=== PATIENT | male | born 1955 | race Hispanic/Latino ===

== ENCOUNTER 2021-02-11 09:25 | Emergency (ER) | payer OTHER, SELFPAY ==
[2021-02-11 09:58] LABS: Basophils % 0.5 % (0-1.3); Hematocrit 43.6 % (39.6-49.0); Lymphocytes % 34.6 % (15.3-44.8); MPV 8.3 fL (7.6-11.3); RBC Red Blood Cell Count 4.51 M/uL (4.33-5.43)
[2021-02-11 10:05] LABS: Protime INR 0.95
[2021-02-11] MEDS ORDERED: NA CHLORIDE 0.9% 500 ML ONE (10:09)
[2021-02-11 10:22] LABS: BUN Blood Urea Nitrogen 16 mg/dL (7-18); Bicarbonate 27 mmol/L (21-32); Glucose Level 104 mg/dL (74-106); Potassium 3.8 mmol/L (3.5-5.1); Sodium Level 142 mmol/L (136-145); Troponin (Emerg Dept Use Only) < 0.02 ng/mL (0.0-0.045)
--- NOTE | 2021-02-11 11:01 | RAD REPORT ---
EXAM DESCRIPTION: CT - Head Brain Wo Cont - 02/11/2021 10:40 am CLINICAL HISTORY: SYNCOPE COMPARISON: Head angio dated 02/11/2021 TECHNIQUE: Axial 5 mm thick images of the head were obtained without IV contrast. All CT scans are performed using dose optimization technique as appropriate and may include automated exposure control or mA/KV adjustment according to patient size. FINDINGS: No intracranial hemorrhage, mass, edema or shift of mid-line structures. No acute infarcti on changes seen. No abnormal extra-axial fluid collections. Ventricles are normal. No significant atr ophy changes are identifiable and no significant chronic ischemic change. Arterial and physiologic ca lcifications are present. Mastoid air cells and visualized portions of the paranasal sinuses are clear. No acute bony findings. Oval lucent area in the right parietal bone is not believed to be an aggressi ve process. IMPRESSION: Negative non-contrast CT head examination for acute or significant intracranial finding. .
--- NOTE | 2021-02-11 11:02 | RAD REPORT ---
EXAM DESCRIPTION: CT - Head angio - 02/11/2021 10:42 am CLINICAL HISTORY: HTN;Syncope TECHNIQUE: During dynamic enhancement using nonionic IV contrast, axial 1 millimeter thick images of the head were obtained. Sagittal and axial reconstruction images were generated using MIP technique and reviewed. All CT scans are performed using dose optimization technique as appropriate and may include automated exposure control or mA/KV adjustment according to patient size. COMPARISON: CT head same date FINDINGS: No aneurysm or vascular malformation identified. Major venous sinuses are patent. No stenosis, named branch occlusion, vasculitis or other significant vascular finding identifiable. Patient has minimal calcifications of the cavernous internal carotid arteries with no measurable isaac nal narrowing. IMPRESSION: Negative CT angio head examination for acute or significant finding.
--- NOTE | 2021-02-11 11:05 | RAD REPORT ---
EXAM DESCRIPTION: CT - Neck Angio - 02/11/2021 10:42 am CLINICAL HISTORY: syncope TECHNIQUE: During dynamic enhancement using nonionic IV contrast, axial 2 mm thick images of the nec k were obtained. Sagittal and axial reconstruction images were generated using MIP technique and revi ewed. All CT scans are performed using dose optimization technique as appropriate and may include automated exposure control or mA/KV adjustment according to patient size. COMPARISON: CT head same date, CT angio head same date FINDINGS: No aneurysm or vascular malformation identified. No carotid or vertebral dissection. No aortic arch or great vessel origin abnormality seen. Vertebral artery origins unremarkable as well . No stenosis, vasculitis or other significant carotid artery finding. No focal abnormality of either vertebral artery. Basilar artery is normal. Patient has minimal vertebrobasilar tortuosity. A rounded low-density mass posterior margin of the left thyroid lobe may be a large partially exophyt ic thyroid nodule. No other evidence for mass or abnormal lymphadenopathy in the neck soft tissues. IMPRESSION: Negative CT angio neck examination. Suspected large posterior left thyroid nodule. Follow-up outpatient thyroid sonography can be perform ed to monitor for further evaluate this finding.
--- NOTE | 2021-02-11 11:28 | ER ---
Nurse's Notes [facility] Name: Mikael Fry Age: 65 yrs Sex: Male : 1955 Arrival Date: 02/11/2021 Time: 09:28 Bed 19 Private MD: Diagnosis: Syncope;Hypertension;Concussion without loss of consciousness;Dizziness and giddiness Presentation: 02/11 09:37 Chief complaint: Patient states: having a syncopal episode on Monday, hitting the back sv of his head on the concrete, +LOC. Went home and Wed woke up with dizziness and drowsiness. Today still has dizziness when he gets up and moves fast and feels "out of it.". Coronavirus screen: Client denies travel out of the [place] in the last 14 days. At this time, the client does not indicate any symptoms associated with coronavirus-19. Ebola Screen: No symptoms or risks identified at this time. Risk Assessment: Do you want to hurt yourself or someone else? Patient reports no desire to harm self or others. Onset of symptoms was February 09, 2021. 09:37 Method Of Arrival: Wheelchair sv 09:37 Acuity: LISE 2 sv 10:14 Initial Sepsis Screen: Does the patient meet any 2 criteria? No. Patient's initial jd3 sepsis screen is negative. Does the patient have a suspected source of infection? No. Patient's initial sepsis screen is negative. Historical: - Allergies: 09:39 No Known Allergies; sv - PMHx: 09:39 None; sv - PSHx: 09:39 None; sv - Immunization history:: Client reports having NOT received the Covid vaccine. - Social history:: Smoking status: Patient reports the use of cigarette tobacco products, denies chronic smoking, but will smoke occasionally, Patient uses alcohol, on a daily basis. admits to "couple of beers" a day. Patient/guardian denies using street drugs, IV drugs. - Family history:: not pertinent. - Hospitalizations: : No recent hospitalization is reported. Screenin:39 VAN Screening: Arm Drift: Patient shows no arm weakness. Patient is VAN negative. sv 10:14 Abuse screen: Denies threats or abuse. Nutritional screening: No deficits noted. jd3 Tuberculosis screening: No symptoms or risk factors identified. Fall Risk Ambulatory Aid- None/Bed Rest/Nurse Assist (0 pts). Gait- Normal/Bed Rest/Wheelchair (0 pts) Mental Status- Oriented to own ability (0 pts). Total Mcgee Fall Scale indicates No Risk (0-24 pts). Assessment: 09:37 Reassessment: Dr Schneider at the bedside. sv 10:12 General: Appears in no apparent distress. comfortable, Behavior is calm, cooperative, jd3 appropriate for age. Pain: Denies pain. Neuro: Level of Consciousness is awake, alert, obeys commands, Oriented to person, place, time, situation, Installation Specialist are equal bilaterally Moves all extremities. Full function Speech is normal, Pupils are PERRLA, Reports dizziness, Denies weakness blurred vision numbness. Cardiovascular: Denies chest pain, Capillary refill < 3 seconds Patient's skin is warm and dry. Rhythm is regular. Respiratory: Airway is patent Respiratory effort is even, unlabored, Respiratory pattern is regular, symmetrical, Denies cough, shortness of breath. GI: No signs and/or symptoms were reported involving the gastrointestinal system. : No signs and/or symptoms were reported regarding the genitourinary system. EENT: No signs and/or symptoms were reported regarding the EENT system. Derm: Skin is intact, Skin is dry, Skin is normal, Skin temperature is warm. Musculoskeletal: Circulation, motion, and sensation intact. Range of motion: intact in all extremities. 11:21 Reassessment: Patient appears in no apparent distress at this time. No changes from jd3 previously documented assessment. Patient and/or family updated on plan of care and expected duration. Pain level reassessed. Patient is alert, oriented x 3, equal unlabored respirations, skin warm/dry/pink. 11:50 Reassessment: Patient appears in no apparent distress at this time. Patient and/or jd3 family updated on plan of care and expected duration. Pain level reassessed. Patient is alert, oriented x 3, equal unlabored respirations, skin warm/dry/pink. Neuro: Level of Consciousness is awake, alert, obeys commands, Oriented to person, place, time, situation, Installation Specialist are equal bilaterally Moves all extremities. Full function Gait is steady, Speech is normal, Facial symmetry appears normal, Pupils are PERRLA. Vital Signs: 09:37 BP 236 / 106; Pulse 86; Resp 18; Temp 99; sv 10:13 BP 177 / 95; Pulse 55; Resp 17 S; Pulse Ox 100% on R/A; jd3 11:21 BP 183 / 108; Pulse 72; Resp 18 S; Pulse Ox 99% on R/A; jd3 ED Course: 09:28 Patient arrived in ED. wm 09:31 Rg Schneider MD is Attending Physician. rn 09:38 Triage completed. sv 09:39 Arm band placed on. sv 09:54 Bulmaro Sumner RN is Primary Nurse. jd3 10:14 Patient has correct armband on for positive identification. Bed in low position. Call jd3 light in reach. Side rails up X 1. alarm security or surveillance monitor on. Pulse ox on. NIBP on. 10:30 Inserted saline lock: 20 gauge in right antecubital area, using aseptic technique. jd3 Blood collected. 10:42 CT Head Brain wo Cont In Process Unspecified. EDMS 10:43 CT Head Angio In Process Unspecified. EDMS 10:43 CT Neck Angio In Process Unspecified. EDMS 11:38 IV discontinued, intact, bleeding controlled, No redness/swelling at site. Pressure jd3 dressing applied. 11:51 No provider procedures requiring assistance completed. jd3 Administered Medications: 09:54 Drug: NS 0.9% 500 ml Route: IV; Rate: bolus; Site: right antecubital; jd3 10:50 Follow up: Response: No adverse reaction; IV Status: Completed infusion; IV Intake: jd3 500ml 11:38 Drug: Lisinopril 10 mg Route: PO; jd3 11:53 Follow up: Response: Medication administered at discharge. jd3 Intake: 10:50 IV: 500ml; Total: 500ml. jd3 Outcome: 11:27 Discharge ordered by . rn 11:52 Discharged to home ambulatory. jd3 11:52 Condition: stable 11:52 Discharge instructions given to patient, Instructed on discharge instructions, follow up and referral plans. medication usage, Demonstrated understanding of instructions, follow-up care, medications, Prescriptions given X 1. 11:53 Patient left the ED. jd3 Signatures: Dispatcher [employer] EDMS Kelly Land RN RN Rg Schneider MD MD rn Davies, Jonathon, RN RN jd3 Marsh, Wendy Corrections: (The following items were deleted from the chart) 11:24 11:21 Pulse 72bpm; Resp 18bpm; Spontaneous; Pulse Ox 99% RA; jd3 jd3
--- NOTE | 2021-02-11 11:28 | EDPHYS ---
Physician Documentation [facility] Name: Mikael Fry Age: 65 yrs Sex: Male : 1955 Arrival Date: 02/11/2021 Time: 09:28 Bed 19 Private MD: ED Physician Rg Schneider HPI: 02/11 09:38 This 65 yrs old Male presents to ER via Unassigned with complaints of syncope, rn head injury, dizziness. 09:38 The patient has experienced syncope. Onset: The symptoms/episode began/occurred 2 rn day(s) ago. Duration: This was a single episode. Context: occurred at work, occurred while the patient was standing, Just prior to the episode the patient experienced no apparent symptoms. Associated injury: Head/face:. Associated signs and symptoms: Pertinent positives: dizziness, Pertinent negatives: abdominal pain, agitation, ataxia, chest pain, numbness, palpitations, seizure, shortness of breath, vomiting, weakness. Current symptoms: Currently, the patient is not experiencing any symptoms. The patient has not experienced similar symptoms in the past. The patient has not recently seen a physician. Reports syncope at work 2 days ago, was standing/walking, no symptoms prior to episode, is daily drinker, doesn't take medication. Reports hit back of head on concrete and since then has felt dizzy when standing, not ataxic, no other injuries. Currently denies any pain, especially in head or chest/abdomen. No vomiting/diarrhea. Works at plant. . Historical: - Allergies: 09:39 No Known Allergies; sv - PMHx: 09:39 None; sv - PSHx: 09:39 None; sv - Immunization history:: Client reports having NOT received the Covid vaccine. - Social history:: Smoking status: Patient reports the use of cigarette tobacco products, denies chronic smoking, but will smoke occasionally, Patient uses alcohol, on a daily basis. admits to "couple of beers" a day. Patient/guardian denies using street drugs, IV drugs. - Family history:: not pertinent. - Hospitalizations: : No recent hospitalization is reported. ROS: 09:38 Constitutional: Negative for fever, chills, and weight loss, Eyes: Negative for injury, rn pain, redness, and discharge, Neck: Negative for injury, pain, and swelling, Cardiovascular: Negative for chest pain, palpitations, and edema, Respiratory: Negative for shortness of breath, cough, wheezing, and pleuritic chest pain, Abdomen/GI: Negative for abdominal pain, nausea, vomiting, diarrhea, and constipation, Back: Negative for injury and pain, MS/Extremity: Negative for injury and deformity, Skin: Negative for injury, rash, and discoloration, Neuro: Negative for headache, weakness, numbness, tingling, and seizure. 09:38 All other systems are negative. Exam: 09:38 Constitutional: This is a well developed, well nourished patient who is awake, alert, rn and in no acute distress. Head/Face: Normocephalic, atraumatic. Eyes: Periorbital areas with no swelling, redness, or edema. ENT: MMM Neck: No Meningismus. Cardiovascular: Regular rate and rhythm. No pulse deficits. Respiratory: No increased work of breathing, no retractions or nasal flaring. Skin: Warm, dry MS/ Extremity: Pulses equal, no cyanosis. Neuro: Awake and alert, GCS 15, oriented to person, place, time, and situation. Cranial nerves II-XII grossly intact. Motor strength 5/5 in all extremities. Sensory grossly intact. Cerebellar exam normal. Normal gait. 10:11 ECG was reviewed by the Attending Physician. rn Vital Signs: 09:37 BP 236 / 106; Pulse 86; Resp 18; Temp 99; sv 10:13 BP 177 / 95; Pulse 55; Resp 17 S; Pulse Ox 100% on R/A; jd3 11:21 BP 183 / 108; Pulse 72; Resp 18 S; Pulse Ox 99% on R/A; jd3 MDM: 09:31 Patient medically screened. rn 11:24 Differential Diagnosis: cardiac arrhythmia, idiopathic syncope, vasovagal episode, rn concussion, dehydration, ETOH related. Data reviewed: vital signs, nurses notes, lab test result(s), EKG, radiologic studies, CT scan, and as a result, I will discharge patient. Counseling: I had a detailed discussion with the patient and/or guardian regarding: the historical points, exam findings, and any diagnostic results supporting the discharge/admit diagnosis, lab results, radiology results, the need for outpatient follow up, to return to the emergency department if symptoms worsen or persist or if there are any questions or concerns that arise at home. Response to treatment: the patient's symptoms have markedly improved after treatment, the patient is now symptom free, and as a result, I will discharge patient. ED course: Asymptomatic, BP up and down, doesn't have pcp, will start on low dose BP medication and given information for PCPs in area and urged to f/u. CT angios neg, ecg without ischemia. . 02/11 09:37 Order name: Basic Metabolic Panel; Complete Time: 10: rn 02/11 09:37 Order name: CBC with Diff; Complete Time: :02/11 09:37 Order name: Protime (+inr); Complete Time: :02/11 09:37 Order name: Ptt, Activated; Complete Time: :02/11 09:37 Order name: Troponin (emerg Dept Use Only); Complete Time: :02/11 09:37 Order name: CT Head Brain wo Cont; Complete Time: 11: rn 02/11 09:37 Order name: EKG; Complete Time: 09:38 rn 02/11 09:37 Order name: Cardiac monitoring; Complete Time: : rn 02/11 09:37 Order name: EKG - Nurse/Tech; Complete Time: 10: rn 02/11 09:37 Order name: IV Saline Lock; Complete Time: : rn 02/11 09:37 Order name: CT Head Angio; Complete Time: 11: rn 02/11 09:37 Order name: CT Neck Angio; Complete Time: 11: rn 02/11 09:37 Order name: Labs collected and sent; Complete Time: : rn 02/11 09:37 Order name: O2 Per Protocol; Complete Time: :02/11 09:37 Order name: O2 Sat Monitoring; Complete Time: 09:55 rn EC:11 Rate is 58 beats/min. Rhythm is regular. QRS [place] is Normal. ND interval is normal. QRS rn interval is normal. QT interval is normal. No Q waves. T waves are Normal. No ST changes noted. Clinical impression: Sinus bradycardia. Interpreted by me. Reviewed by me. Administered Medications: 09:54 Drug: NS 0.9% 500 ml Route: IV; Rate: bolus; Site: right antecubital; jd3 10:50 Follow up: Response: No adverse reaction; IV Status: Completed infusion; IV Intake: jd3 500ml 11:38 Drug: Lisinopril 10 mg Route: PO; jd3 11:53 Follow up: Response: Medication administered at discharge. jd3 Disposition Summary: 02/11/21 11:27 Discharge Ordered Location: Home rn Problem: new rn Symptoms: have improved rn Condition: Stable rn Diagnosis - Syncope rn - Hypertension rn - Concussion without loss of consciousness rn - Dizziness and giddiness rn Followup: rn - With: Private Physician - When: As needed - Reason: Recheck today's complaints, Re-evaluation by your physician Discharge Instructions: - Concussion, Adult rn - Dizziness rn - Discharge Summary Sheet jd3 - Hypertension, Adult rn Forms: - Work release form jd3 - Medication Reconciliation Form rn - Thank You Letter rn - Antibiotic rn nursery - Prescription Opioid Use rn Prescriptions: - Lisinopril 10 mg Oral Tablet - take 1 tablet by ORAL route once daily; 60 tablet; Refills: 0, Product rn Selection Permitted Signatures: Dispatcher [employer] Kelly Atkins RN RN Rg Shell MD MD rn Davies, Jonathon, RN RN jd3
[2021-02-11] MEDS ORDERED: lisinopriL 10 MG TAB ONE (11:55)
[2021-02-11 12:01] VITALS: TEMP 99
[2021-02-11 12:04] VITALS: BP 183/108; O2SAT 99
--- NOTE | 2021-02-12 07:46 | EKG ---
Test Date: 2021-02-11 Test Time: 10:00:39 Aviation Project Manager: DEMETRIO MEASUREMENT RESULTS: Intervals: Rate: 58 WI: 156 QRSD: 96 QT: 426 QTc: 418 [place]: P: 74 WI: 156 QRS: 77 T: 70 INTERPRETIVE STATEMENTS: Sinus bradycardia Otherwise normal ECG No previous ECG available for comparison Electronically Signed On 02-12-21 07:42:55 CDT by Richard Montanez
== END 2021-02-11 11:53 | disposition home or self-care (01) ==
LOC: ER 09:25
DX: S06.0X0A Concussion without loss of consciousness, initial encounter (principal); R55 Syncope and collapse; I10 Essential (primary) hypertension; W18.39XA Other fall on same level, initial encounter; Y92.89 Other specified places as the place of occurrence of the external cause; Y99.8 Other external cause status
CPT/HCPCS: 36415; 70450; 70496; 70498; 80048; 84484; 85025; 85610; 85730; 93005; 96360; 99284; J7040; Q9967

== ENCOUNTER → 2023-10-11 | Emergency (ER) | payer OTHER ==
[~2023-10-11] MED LIST: DIAZEPAM 5 MG TABLET ONE; HYDROCODONE/APAP 5/325 MG TAB ONE
--- NOTE | 2023-10-11 11:53 | EDPHYS ---
Physician Documentation [facility] Name: Mikael Fry Age: 68 yrs Sex: Male : 1955 Arrival Date: 10/11/2023 Time: 09:54 Bed DX3 Private MD: ED Physician Michael Brown HPI: 10/10 11:53 This 68 yrs old Male presents to ER via Ambulatory with complaints of Low Back ms3 Pain. 11:53 68-year-old male with past medical history of hypertension and low back pain presents ms3 to the emergency department for right low back pain that has been ongoing for 3 months. Patient states he had an MRI performed 3 months ago that showed inflammation of his right hip and he is concerned it moved into his back. Patient states his discomfort is an 8/10. Patient denies any alleviating or inciting factors. Historical: - Allergies: 10:09 No Known Allergies; bp - Home Meds: 10:09 Unable to obtain [Active]; bp - PMHx: 10:09 Hypertensive disorder; bp - Immunization history:: Adult Immunizations up to date. - Social history:: Smoking status: unknown. ROS: 11:53 Constitutional: Negative for fever, and chills. Neck: Negative for injury, pain, and ms3 swelling, Cardiovascular: Negative for chest pain, and palpitations. Respiratory: Negative for shortness of breath, cough, wheezing, and pleuritic chest pain, Abdomen/GI: Negative for abdominal pain, nausea, vomiting, diarrhea, and constipation, 11:53 Back: Positive for Low back pain, 11:53 MS/extremity: Exam: 11:53 Constitutional: This is a well developed, well nourished patient who is awake, alert, ms3 and in no acute distress. Head/Face: Normocephalic, atraumatic. Chest/axilla: Normal chest wall appearance and motion. Nontender with no deformity. Cardiovascular: Regular rate and rhythm with a normal S1 and S2. No gallops, murmurs, or rubs. Normal PMI, no JVD. No pulse deficits. Respiratory: Lungs have equal breath sounds bilaterally, clear to auscultation and percussion. No rales, rhonchi or wheezes noted. No increased work of breathing, no retractions or nasal flaring. Abdomen/GI: Soft, non-tender, with normal bowel sounds. No distension or tympany. No guarding or rebound. No evidence of tenderness throughout. 11:53 Back: pain, that is moderate, of the right low back, muscle spasm, is appreciated in the right low back, Vital Signs: 10:08 BP 109 / 67; Pulse 82; Resp 16; Temp 98; Pulse Ox 98% ; Weight 63.5 kg; Height 5 ft. 6 bp in. ; 12:07 BP 115 / 70; Pulse 77; Resp 18; Temp 98.4; Pulse Ox 100% ; Pain 5/10; kb3 10:08 Body Mass Index 22.60 (63.50 kg, 167.64 cm) bp 12:07 Pain Scale: Adult kb3 MDM: 10:20 Patient medically screened. ms3 11:53 Differential diagnosis: arthritis, strain, Herniated disc. Data reviewed: vital signs, ms3 nurses notes, and as a result, I will discharge patient. I considered the following discharge prescriptions or medication management in the emergency department Medications were administered in the Emergency Department. See MAR. Care significantly affected by the following chronic conditions: Hypertension. Counseling: I had a detailed discussion with the patient and/or guardian regarding the historical points, exam findings, and any diagnostic results supporting the discharge/admit diagnosis, the need for outpatient follow up, to return to the emergency department if symptoms worsen or persist or if there are any questions or concerns that arise at home. ED course: On reevaluation patient states his symptoms are improved after Valium and [place]. Patient to follow-up with primary care physician in 2 to 3 days. Patient understands agrees with plan. All questions were answered. Return precautions discussed include worsening symptoms, or any other concerns. On reevaluation patient is alert and oriented x 4, no apparent distress, nontoxic-appearing, ambulatory in the emergency room, speaking full sentences. Patient denies bowel or bladder incontinence, saddle anesthesia, or lower extremity weakness. Administered Medications: 11:28 Drug: HYDROcodone-acetaminophen PO 5 mg-325 mg 1 tabs PO once Route: PO; kb3 12:04 Follow up: Response: Pain is decreased kb3 11:28 Drug: Diazepam PO 5 mg PO once Route: PO; kb3 12:04 Follow up: Response: Pain is decreased kb3 Disposition Summary: 03/06/24 11:53 Discharge Ordered Notes: Location: Home ms3 Condition: Stable ms3 Diagnosis - Low back pain ms3 - Sciatica, unspecified side ms3 Followup: ms3 - With: Hussain Montoya DO - When: 2 - 3 days - Reason: Recheck today's complaints Discharge Instructions: - Discharge Summary Sheet ms3 - Acute Back Pain, Adult ms3 Forms: - Medication Reconciliation Form ms3 - Thank You Letter ms3 - Antibiotic Education ms3 - Prescription Opioid Use ms3 - Patient Portal Instructions ms3 - Leadership Thank You Letter ms3 - Work release form kb3 Prescriptions: - Ibuprofen 600 mg Oral Tablet - take 1 tablet ORAL route every 6 hours As needed take with food; 30 tablet; ms3 Refills: 0, Product Selection Permitted - Cyclobenzaprine 10 mg Oral Tablet - take 1 tablet ORAL route every 8 hours As needed; 30 tablet; Refills: 0, ms3 Product Selection Permitted Signatures: Emile Garsia RN RN Michael Soto DO DO ms3 Codie Terry, RN RN kb3
--- NOTE | 2023-10-11 11:53 | ER ---
Nurse's Notes [facility] Name: Mikael Fry Age: 68 yrs Sex: Male : 1955 Arrival Date: 10/11/2023 Time: 09:54 Bed DX3 Private MD: Diagnosis: Low back pain;Sciatica, unspecified side Presentation: 10/10 10:08 Chief complaint: Patient states: FALL 1 YR AGO, 6 MONTH RIGHT HIP AND LUMBAR PAIN. bp Coronavirus screen: At this time, the client does not indicate any symptoms associated with coronavirus-19. Ebola Screen: No symptoms or risks identified at this time. Initial Sepsis Screen: Does the patient meet any 2 criteria? No. Patient's initial sepsis screen is negative. Does the patient have a suspected source of infection? No. Patient's initial sepsis screen is negative. Risk Assessment: Do you want to hurt yourself or someone else? Patient reports no desire to harm self or others. Onset of symptoms is unknown. 10:08 Method Of Arrival: Ambulatory bp 10:08 Acuity: LISE 4 bp Triage Assessment: 10:09 General: Appears in no apparent distress. uncomfortable, Behavior is calm, cooperative, bp appropriate for age. Pain: Complains of pain in back. Historical: - Allergies: 10:09 No Known Allergies; bp - Home Meds: 10: Unable to obtain [Active]; bp - PMHx: 10:09 Hypertensive disorder; bp - Immunization history:: Adult Immunizations up to date. - Social history:: Smoking status: unknown. Screenin:00 [facility] ED Fall Risk Assessment (Adult) History of falling in the last 3 months, kb3 including since admission No falls in past 3 months (0 pts) Confusion or Disorientation Yes (5 pts) Intoxicated or Sedated No (0 pts) Impaired Gait No (0 pts) Mobility Assist Device Used No (0 pt) Altered Elimination No (0 pt) Score/Fall Risk Level 0 - 2 = Low Risk Oriented to surroundings. Abuse screen: Denies threats or abuse. Denies injuries from another. Nutritional screening: No deficits noted. Tuberculosis screening: No symptoms or risk factors identified. Assessment: 11:00 General: Appears in no apparent distress. uncomfortable, Behavior is calm, cooperative. kb3 Pain: Complains of pain in low back area Pain currently is 10 out of 10 on a pain scale. Quality of pain is described as aching, sharp, throbbing. Neuro: No deficits noted. Musculoskeletal: Reports pain in low back area. Vital Signs: 10:08 BP 109 / 67; Pulse 82; Resp 16; Temp 98; Pulse Ox 98% ; Weight 63.5 kg; Height 5 ft. 6 bp in. ; 12:07 BP 115 / 70; Pulse 77; Resp 18; Temp 98.4; Pulse Ox 100% ; Pain 5/10; kb3 10:08 Body Mass Index 22.60 (63.50 kg, 167.64 cm) bp 12:07 Pain Scale: Adult kb3 ED Course: 09:57 Patient arrived in ED. mg5 10:09 Triage completed. bp 10:09 Arm band placed on. bp 10:11 Michael Brown DO is Attending Physician. ms3 11:52 Hussain Montoya DO is Referral Physician. ms3 12:00 Patient has correct armband on for positive identification. Provided Education on: kb3 Ice/heat alternating to affected area, medications as needed. 12:00 No provider procedures requiring assistance completed. Patient did not have IV access kb3 during this emergency room visit. Administered Medications: 11:28 Drug: HYDROcodone-acetaminophen PO 5 mg-325 mg 1 tabs PO once Route: PO; kb3 12:04 Follow up: Response: Pain is decreased kb3 11:28 Drug: Diazepam PO 5 mg PO once Route: PO; kb3 12:04 Follow up: Response: Pain is decreased kb3 Medication: 11:00 VIS not applicable for this client. kb3 Outcome: 11:53 Discharge ordered by . ms3 12:07 Discharged to home ambulatory, kb3 12:07 Condition: stable 12:07 Discharge instructions given to patient, Instructed on discharge instructions, follow up and referral plans. medication usage, Demonstrated understanding of instructions, follow-up care, medications, Prescriptions given X 2, 12:07 Patient left the ED. kb3 Signatures: Emile Garsia, RN RN Michael Soto DO DO ms3 Codie Terry, BELÉN RN [email or web address] Juli Russell mg5
[2023-10-11 12:18] VITALS: BP 115/70; TEMP 98.4; O2SAT 100
== END ==
LOC: ER 09:54
DX: M54.31 Sciatica, right side (principal)
CPT/HCPCS: 99283

== ENCOUNTER 2023-11-20 13:55 | Inpatient (IN) | payer OTHER ==
[2023-11-20] MEDS ORDERED: ONDANSETRON 4 MG/2 ML VIAL ONE (15:32)
[2023-11-20] MEDS ORDERED: NA CHLORIDE 0.9% 1,000 ML ONE ×3 (15:32→21:13)
[2023-11-20 15:36] LABS: Absolute Lymphocytes (CBC) 1.3 K/uL (0.7-4.9); Absolute Neutrophil 11.3 K/uL (1.8-8.0); Basophils % 0.2 % (0-1.3); Eosinophils % 0.3 % (0-4.4); Hematocrit 21.5 % (39.6-49.0); Hemoglobin 6.8 g/dL (13.6-17.9); Lymphocytes % 9.6 % (15.3-44.8); MCHC 31.4 g/dL (32.0-36.0); MCV 76.4 fL (80-100); MPV 6.8 fL (7.6-11.3); Monocytes % 7.5 % (3.3-12.3); Neutrophils % 82.4 % (41.7-73.7); Platelets 789 thou/uL (152-406); RBC Red Blood Cell Count 2.82 M/uL (4.33-5.43); Red Cell Distribution Width 23.1 % (12.1-15.2)
[2023-11-20 15:44] LABS: PT Prothrombin Time 13.3 SECONDS (9.5-12.5); PTT, Activated Partial Thromb 26.8 SECONDS (24.3-36.9); Protime INR 1.22
[2023-11-20 15:55] LABS: Albumin/Globulin Ratio 0.3 (1.1-1.8); Anion Gap 10.6 mEq/L (5.0-15.0); Bilirubin Total 0.3 mg/dL (0.2-1.0)
[2023-11-20 15:57] LABS: Potassium 3.6 mEq/L (3.5-5.1)
--- NOTE | 2023-11-20 18:14 | RAD REPORT ---
EXAM DESCRIPTION: CT - Chest Abd Pelvis Wo Con - 11/20/2023 4:49 pm CLINICAL HISTORY: abd pain, anemia, nvd COMPARISON: CT ABD PELVIS W CONTRAST dated 03/26/2013; Head Brain Wo Cont dated 02/11/2021 TECHNIQUE: Thin axial CT images of the chest, abdomen, and pelvis, performed without IV contrast. Mu ltiplanar reformats were generated and reviewed. All CT scans are performed using dose optimization technique as appropriate and may include automated exposure control or mA/KV adjustment according to patient size. FINDINGS: Numerous pulmonary nodules, largest in the right middle lobe medially abutting the minor f issure measuring 2.0 x 1.7 cm. Another right middle lobe nodule more peripherally measuring 1.1 cm al so abutting the minor fissure on axial image 36. Medial left basilar nodule measuring 1.7 cm on axial image 54. Central left upper lobe 1 cm nodule on axial image 38. Numerous other smaller nodules appr eciated bilaterally.No pleural or pericardial effusion.No intrathoracic adenopathy. The liver demonstrates bilobed hypoattenuating masses near the dome the largest component is posterio rly measuring 9.3 x 7.6 cm. The spleen, pancreas, and adrenal glands are within normal limits. Right moderate hydronephrosis and hydroureter. Mild prominence of the left renal pelvis. Segment of nodular wall thickening along the lower rectum and upper anal canal, with some soft tissue thickening along the mesial rectal fat. No bowel obstruction, free air, free fluid or abscess. Pro minent retroperitoneal and left pelvic sidewall lymph nodes, largest measuring 11 mm and 1.4 cm in sh ort axis respectively. No worrisome osseous finding. IMPRESSION: Segment of nodular wall thickening along the lower rectum and anal canal, raises concern for malignancy. Large bilobed hypoattenuating mass near the right hepatic dome, largest component measures 9.3 cm, ma y represent a primary or metastatic mass. Numerous pulmonary nodules concerning for pulmonary metastases. Mildly prominent retroperitoneal and left pelvic sidewall lymph nodes, concerning for metastatic mariaa opathy. Moderate right hydronephrosis and hydroureter, without evidence of an obstructing calculus. Findings may relate to retrograde ureteral reflux or a distal stricture.
[2023-11-20] MEDS ORDERED: NA CHLORIDE 0.9% 500 ML ONE (18:39)
[2023-11-20 18:57] LABS: Anisocytosis 1+; Blood Morphology Comment NOTED (NOT SEEN); Platelet Estimate INCR; Poikilocytosis 2+; White Blood Cell Scan OK (OK)
[2023-11-20 19:21] LABS: Specific Gravity 1.018 (1.005-1.030); Sqamous Epithelial None Seen /HPF (None Seen); Urine Bacteria <20 /HPF (<20); Urine Bilirubin NEGATIVE (Negative); Urine Blood 1+ (Negative); Urine Clarity Extremely Turbid (Clear); Urine Color Yellow (Yellow); Urine Crystals Unidentified Few /HPF (None Seen); Urine Culture Reflex Order REFLEXED; Urine Glucose NEGATIVE (Negative); Urine Ketones NEGATIVE (Negative); Urine Microscopic Reflex YN ORDER UMIC; Urine Nitrite NEGATIVE (Negative); Urine Protein 1+ (Negative); Urine Urobilinogen 1+ (Normal); Urine WBC >50 /HPF (<5)
[2023-11-20] MEDS ORDERED: ONDANSETRON 4 MG/2 ML VIAL IV PRN (19:59)
[2023-11-20] MEDS ORDERED: ACETAMINOPHEN 500 MG TAB PO PRN (19:59)
--- NOTE | 2023-11-20 19:59 | ER ---
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 Denies nausea nj1 and vomiting. Complains of diarrhea. Coronavirus screen: Vaccine status: Patient reports being unvaccinated. Ebola Screen: Patient denies travel to an Ebola-affected area in the 21 days before illness onset. Initial Sepsis Screen: Does the patient meet any 2 criteria? HR > 90 bpm. No. Patient's initial sepsis screen is negative. Does the patient have a suspected source of infection? No. Patient's initial sepsis screen is negative. Risk Assessment: Do you want to hurt yourself or someone else? Patient reports no desire to harm self or others. Onset of symptoms was September 2023. 14:14 Method Of Arrival: Ambulatory banner 14:14 Acuity: LISE 3 nj1 Triage Assessment: 14:21 General: Appears in no apparent distress. uncomfortable, Behavior is calm, cooperative, nj1 appropriate for age. GI: Reports upper abdominal pain, diarrhea, Patient currently denies nausea. 14:22 Pain: Complains of pain in abdomen Pain currently is 8 out of 10 on a pain scale. nj1 Historical: - Allergies: 14:21 No Known Allergies; nj1 - PMHx: 14:21 Hypertensive disorder; nj1 - Immunization history:: Client reports having NOT received the Covid vaccine. - Infectious Disease History:: Denies. - Social history:: Smoking status: Patient reports the use of cigarette tobacco products, smokes one-half pack cigarettes per day. Screenin:58 [facility] ED Fall Risk Assessment (Adult) History of falling in the last 3 months, db including since admission No falls in past 3 months (0 pts) Confusion or Disorientation No (0 pts) Intoxicated or Sedated No (0 pts) Impaired Gait No (0 pts) Mobility Assist Device Used No (0 pt) Altered Elimination No (0 pt) Score/Fall Risk Level 0 - 2 = Low Risk Oriented to surroundings, Maintained a safe environment. Abuse screen: Denies threats or abuse. Denies injuries from another. Nutritional screening: No deficits noted. Tuberculosis screening: No symptoms or risk factors identified. Assessment: 15:15 Reassessment: Patient appears in no apparent distress at this time. Patient and/or db family updated on plan of care and expected duration. Pain level reassessed. Patient is alert, oriented x 3, equal unlabored respirations, skin warm/dry/pink. General: Appears in no apparent distress. uncomfortable, Behavior is calm, cooperative. Pain: Complains of pain in back and abdomen. Neuro: Level of Consciousness is awake, alert, obeys commands, Oriented to person, place, time, situation, Speech is normal, Facial symmetry appears normal. Cardiovascular: Reports None Denies chest pain. Respiratory: Airway is patent Respiratory effort is even, unlabored, Respiratory pattern is regular, symmetrical. GI: Abdomen is flat, non-distended, Bowel sounds present X 4 quads. Abd is soft Reports lower abdominal pain. :. EENT: No deficits noted. No signs and/or symptoms were reported regarding the EENT system. Musculoskeletal: Reports pain in back. 15:20 Reassessment: REQUESTED URINE FROM PT. db 15:55 Reassessment: NOTIFIED PROVIDER KEREN PATIENT LACTATE 3.4. db 16:00 Reassessment: Patient appears in no apparent distress at this time. Patient and/or db family updated on plan of care and expected duration. Pain level reassessed. Patient is alert, oriented x 3, equal unlabored respirations, skin warm/dry/pink. 16:56 Reassessment: REMINDED PATIENT OF NEED FOR URINE STATES IS UNABLE TO URINATE AT THIS db TIME. 18:00 Reassessment: Patient appears in no apparent distress at this time. Patient and/or db family updated on plan of care and expected duration. Pain level reassessed. Patient is alert, oriented x 3, equal unlabored respirations, skin warm/dry/pink. General: Appears in no apparent distress. comfortable, Behavior is calm, cooperative. 18:05 Reassessment: CALLED BLOOD BANK FOR UPDATE IN BLOOD PRODUCT STATUS. db 18:26 Reassessment: REQUEST FOR BLOOD SENT TO LAB. db 18:28 Reassessment: CONSENT FOR BLOOD SIGNED AND ON THE CHART. db 18:36 Reassessment: PT AMBULATORY TO RESTROOM. OFFERED PT GOWN REFUSED. OFFERED PATIENT PAPER db SCRUBS PATIENT REFUSED. PT GIVEN WIPES. PT WANTS A SHOWER. 18:42 Reassessment: BLOOD PRODUCTS RECEIVED. PT IS IN THE RESTROOM. db 18:50 Reassessment: SEE BLOOD TRANSFUSION FLOW SHEET . BLOOD ADMINISTERED AT 1850. db 19:20 General: Appears in no apparent distress. comfortable, Behavior is calm, cooperative. jw7 Pain: Denies pain. 19:20 Neuro: Level of Consciousness is awake, alert, obeys commands, Oriented to person, jw7 place, time, situation. Cardiovascular: Heart tones S1 S2 present Capillary refill < 3 seconds Clubbing of nail beds is absent JVD is absent Patient's skin is warm and dry. Respiratory: Airway is patent Trachea midline Respiratory effort is even, unlabored, Respiratory pattern is regular, symmetrical. GI: Abdomen is flat, non-distended, Bowel sounds present X 4 quads. Abd is soft. : No deficits noted. No signs and/or symptoms were reported regarding the genitourinary system. EENT: No deficits noted. No signs and/or symptoms were reported regarding the EENT system. Derm: Skin is intact, is healthy with good turgor, Skin is dry, Skin is normal, Skin temperature is warm. Musculoskeletal: Circulation, motion, and sensation intact. Range of motion: intact in all extremities. 20:00 Reassessment: Patient appears in no apparent distress at this time. No changes from jw7 previously documented assessment. Patient and/or family updated on plan of care and expected duration. Pain level reassessed. Patient is alert, oriented x 3, equal unlabored respirations, skin warm/dry/pink. 20:00 General: Pt admitted to ER Hold, See [facility] for charting and vital signs. jw7 Vital Signs: 14:14 BP 129 / 65; Pulse 102; Resp 18; Temp 97.9(O); Pulse Ox 100% ; Height 5 ft. 6 in. ; nj1 Pain 8/10; 15:33 BP 126 / 70; Pulse 81; Resp 18; Pulse Ox 100% on R/A; Weight 68.04 kg; Height 5 ft. 6 vk in. ; 16:00 BP 139 / 78; Pulse 81; Resp 18; Pulse Ox 100% on R/A; db 16:45 BP 143 / 69; Pulse 89; Resp 18; Pulse Ox 100% on R/A; db 17:30 BP 123 / 70; Pulse 95; Resp 18; Pulse Ox 100% on R/A; db 18:40 BP 140 / 86; Pulse 90; Resp 18; Pulse Ox 100% on R/A; db 19:00 BP 151 / 78; Pulse 88; Resp 17 S; Pulse Ox 98% on R/A; jw7 20:00 BP 146 / 77; Pulse 90; Resp 16 S; Pulse Ox 100% on R/A; jw7 15:33 Body Mass Index 24.21 (68.04 kg, 167.64 cm) vk 14:14 Pain Scale: Adult nj1 ED Course: 13:58 Patient arrived in ED. mr 13:59 Ashley Luevano PA-C is PHCP. sb4 13:59 Rg Schneider MD is Attending Physician. sb4 14:21 Triage completed. nj1 14:21 Arm band placed on left wrist. nj1 14:58 Patient placed in an exam room, on a stretcher. ll1 15:00 Ellyn Jasso, RN is Primary Nurse. db 15:15 Initial lab(s) drawn, by me, sent to lab. First set of blood cultures drawn by me. em1 Inserted saline lock: 20 gauge in right antecubital area, using aseptic technique. Blood collected. 15:26 Radiology exam delayed due to lab results not completed at this time. (BUN/Creatinine). nj 16:50 CT Chest Abdomen Pelvis W/O Contrast In Process Unspecified. EDMS 16:[address] moved [address]. db 17:00 Client placed on continuous cardiac and pulse oximetry monitoring. NIBP monitoring db applied. secured entrance monitor on. Pulse ox on. NIBP on. 17:00 Warm blanket given. db 18:28 Consent for blood and/or blood product transfusion explained by staff, explained by db physician, signed by patient. 19:19 Report given to BELÉN JACKSON. db 19:20 Patient has correct armband on for positive identification. Bed in low position. Call jw7 light in reach. Side rails up X 1. Provided Education on: Use of Call Light and need to be in a hospital gown, Pt Refused hospital gown. 19:57 Tree Hardy MD is Hospitalizing Provider. sb4 20:00 No provider procedures requiring assistance completed. Patient admitted, IV remains in jw7 place. 23:47 Chelsea Irving, RN is Primary Nurse. jw7 Administered Medications: 15:27 Drug: NS 0.9% IV 1000 ml IV at 1 bolus Per protocol; 1000 mL bolus Route: IV; Rate: 1 db bolus; Site: right antecubital; 16:30 Follow up: Response: No adverse reaction; IV Status: Completed infusion; IV Intake: db 1000ml 15:27 Drug: Ondansetron IVP 4 mg IVP once; over 2 minutes Route: IVP; Site: right antecubital;db 16:45 Follow up: Response: No adverse reaction db 18:26 Drug: NS 0.9% IV 1000 ml IV at 1 bolus Per protocol; 1000 mL bolus Route: IV; Rate: 1 db bolus; Site: right antecubital; 23:39 Follow up: Response: No adverse reaction; IV Status: Completed infusion; IV Intake: jw7 1000ml Medication: 18:38 VIS not applicable for this client. db Intake: 16:30 IV: 1000ml; Total: 1000ml. db 23:39 IV: 1000ml; Total: 2000ml. jw7 Outcome: 19:58 Decision to Hospitalize by Provider. sb4 20:00 Admitted to ER Hold. Please see [facility] for further documentation. jw7 20:00 Condition: stable 20:00 Instructed on the need for admit, Demonstrated understanding of instructions, 11/20 12:29 Patient left the ED. mb9 Signatures: Dispatcher [employer] EDOK Sarah Ramsey, Reg Reg mr Manzanares Mustapha em1 Jose Eduardo Griffin Lynsay, RN BELÉN 1 Chelsea Irving, BELÉN MELISSA jw7 Ellyn Jasso RN RN Ashley Cabello PA-C [place] sb4 Sarah Pino RN RN mb9 Patti Gill RN RN nj1 Tamara Gleason Corrections: (The following items were deleted from the chart) 11/19 21:07 15:33 BP 126 / 70; Pulse 81bpm; Resp 18bpm; Pulse Ox 100% RA; db vk
--- NOTE | 2023-11-20 19:59 | EDPHYS ---
Physician Documentation [facility] Name: Mikael Fry Age: 68 yrs Sex: Male : 1955 Arrival Date: 11/20/2023 Time: 13:55 Bed 20 Private MD: ED Physician Rg Schneider HPI: 11/19 14:19 This 68 yrs old Male presents to ER via Unassigned with complaints of sb4 Abdominal Pain. 14:24 Patient reports nausea, vomiting, diarrhea, and diffuse abdominal pain for 2 months sb4 now. He also reports significant weight loss. He thought that he just had some stomach virus but states that it has persisted and he can barely hold anything down anymore. He denies any chronic medical issues or daily medications. Historical: - Allergies: 14:21 No Known Allergies; nj1 - PMHx: 14:21 Hypertensive disorder; nj1 - Immunization history:: Client reports having NOT received the Covid vaccine. - Infectious Disease History:: Denies. - Social history:: Smoking status: Patient reports the use of cigarette tobacco products, smokes one-half pack cigarettes per day. ROS: 14:24 Constitutional: Negative for fever, chills, and weight loss, sb4 14:24 Abdomen/GI: Positive for abdominal pain, nausea, vomiting, and diarrhea, 14:24 All other systems are negative, Exam: 14:24 Constitutional: The patient appears in no acute distress, alert, awake, sb4 14:24 Head/face: Exam is negative for acute changes, deformity, 14:24 Cardiovascular: Regular rate and rhythm with a normal S1 and S2. Respiratory: Lungs sb4 have equal breath sounds bilaterally, clear to auscultation and percussion. No rales, rhonchi or wheezes noted. No increased work of breathing, no retractions or nasal flaring. Abdomen/GI: Soft, non-tender, no distension. Back: No spinal tenderness. No costovertebral tenderness. Full range of motion. 14:24 Eyes: Periorbital structures: are sunken, 14:24 ENT: Mouth: Oral mucosa: dry, Posterior pharynx: 18:30 Abdomen/GI: Rectal exam: rectal tone normal, Stool: brown, mass, that is small, with sb4 tenderness, Vital Signs: 14:14 BP 129 / 65; Pulse 102; Resp 18; Temp 97.9(O); Pulse Ox 100% ; Height 5 ft. 6 in. ; nj1 Pain 8/10; 15:33 BP 126 / 70; Pulse 81; Resp 18; Pulse Ox 100% on R/A; Weight 68.04 kg; Height 5 ft. 6 vk in. ; 16:00 BP 139 / 78; Pulse 81; Resp 18; Pulse Ox 100% on R/A; db 16:45 BP 143 / 69; Pulse 89; Resp 18; Pulse Ox 100% on R/A; db 17:30 BP 123 / 70; Pulse 95; Resp 18; Pulse Ox 100% on R/A; db 18:40 BP 140 / 86; Pulse 90; Resp 18; Pulse Ox 100% on R/A; db 19:00 BP 151 / 78; Pulse 88; Resp 17 S; Pulse Ox 98% on R/A; jw7 20:00 BP 146 / 77; Pulse 90; Resp 16 S; Pulse Ox 100% on R/A; jw7 15:33 Body Mass Index 24.21 (68.04 kg, 167.64 cm) vk 14:14 Pain Scale: Adult nj1 MDM: 14:14 Patient medically screened. sb4 18:35 Data reviewed: vital signs, nurses notes, lab test result(s), radiologic studies, I sb4 have discussed the patient's presentation/case with the attending Emergency Department Physician;. 11/19 14:18 Order name: CBC with Diff; Complete Time: 18:59 4 11/19 14:18 Order name: CMP; Complete Time: 15:58 sb4 11/19 14:18 Order name: Lipase; Complete Time: 15:58 sb4 11/19 14:18 Order name: Urinalysis w/ reflexes; Complete Time: 19:23 sb4 11/19 14:23 Order name: Blood Culture Adult (2) 4 11/19 14:23 Order name: Lactate w/ 2H reflex if indic.; Complete Time: 15:55 sb4 11/19 14:23 Order name: Protime (+inr); Complete Time: 15:46 sb4 11/19 14:23 Order name: Ptt, Activated; Complete Time: 15:46 sb4 11/19 15:47 Order name: Type And Screen [facility] 11/19 18:16 Order name: Packed RBCs (Additional Unit) EDMS 11/19 18:23 Order name: Lactate w/ 2H reflex if indic.; Complete Time: 19:03 db 11/19 18:58 Order name: CBC Smear Scan; Complete Time: 18:59 EDMS 11/19 19:26 Order name: Urine Culture EDGA 11/19 20:04 Order name: Urinalysis w/ reflexes EDMS 11/19 20:04 Order name: CBC with Automated Diff EDGA 11/19 20:04 Order name: CBC with Automated Diff EDGA 11/19 20:04 Order name: Comprehensive Metabolic Panel EDGA 11/19 20:04 Order name: Comprehensive Metabolic Panel EDGA 11/20 06:58 Order name: Carcinoembryonic Antigen EDGA 11/19 16:10 Order name: CT Chest Abdomen Pelvis W/O Contrast; Complete Time: 18:15 sb4 11/19 14:18 Order name: IV Saline Lock; Complete Time: 15:24 sb4 11/19 14:18 Order name: Labs collected and sent; Complete Time: 15:24 sb4 Administered Medications: 15:27 Drug: NS 0.9% IV 1000 ml IV at 1 bolus Per protocol; 1000 mL bolus Route: IV; Rate: 1 db bolus; Site: right antecubital; 16:30 Follow up: Response: No adverse reaction; IV Status: Completed infusion; IV Intake: db 1000ml 15:27 Drug: Ondansetron IVP 4 mg IVP once; over 2 minutes Route: IVP; Site: right antecubital;db 16:45 Follow up: Response: No adverse reaction db 18:26 Drug: NS 0.9% IV 1000 ml IV at 1 bolus Per protocol; 1000 mL bolus Route: IV; Rate: 1 db bolus; Site: right antecubital; 23:39 Follow up: Response: No adverse reaction; IV Status: Completed infusion; IV Intake: jw7 1000ml Disposition: 11/20 14:11 Co-signature as Attending Physician, Rg Schneider MD I reviewed the patient's care rn provided by the Advanced Practice Provider and agree with the diagnosis and treatment plan. Disposition Summary: 11/20/23 19:58 Hospitalization Ordered Notes: Hospitalization Status: Observation sb4 Provider: Tree Hardy sb4 Condition: Fair sb4 Problem: new sb4 Symptoms: have improved sb4 Bed/Room Type: Standard sb4 Location: Telemetry/MedSurg (observation)(11/21/23 11:35) bd Room Assignment: 430(11/21/23 11:35) bd Diagnosis - Anemia in neoplastic disease sb4 - Other acute kidney failure sb4 - Dehydration sb4 - suspected rectal cancer with lung and liver mets sb4 Forms: - Medication Reconciliation Form sb4 - SBAR form sb4 - Leadership Thank You Letter sb4 Signatures: Dispatcher [employer] EDMS Aretha Conley bd Rg Schneider MD MD rn Basinger, Emily RN RN eb1 Ellyn Jasso RN RN Ashley Cabello PA-C PA-C sb4 Patti Gill RN RN nj1 Zion Tamayo MD MD ec2 Chelsea Irving RN jw7 Corrections: (The following items were deleted from the chart) 11/19 14:19 14:19 Abdomen Pelvis W Con+CT.RAD.BRZ ordered. EDMS EDMS 16:10 16:10 Chest Abdomen Pelvis Wo Con+CT.RAD.BRZ ordered. EDMS EDMS 21:06 19:58 Telemetry/MedSurg (observation) sb4 eb1 21:06 19:58 sb4 eb1 11/20 11:35 11/19 21:06 [facility] ER HOLD eb1 bd 11/20 11:35 11/19 21:06 ERHOLD- eb1 bd
[2023-11-20] MEDS: NA CHLORIDE 0.9% 1,000 ML IV SCH (20:00)
[2023-11-20] MEDS ORDERED: SODIUM CHLORIDE 0.9% 10ML INJ IV PRN (20:02)
--- NOTE | 2023-11-20 20:04 | P.HP ---
Certification for Inpatient Patient admitted to: Observation With expected LOS: <2 Midnights Practitioner: I am a practitioner with admitting privileges, knowledge of patient current condition, hospital course, and medical plan of care. Services: Services provided to patient in accordance with Admission requirements found in Title 42 Section 412.3 of the Code of Federal Regulations Patient History Date of Service: 11/21/23 Reason for admission: Generalized weakness History of Present Illness: 68 yrs old Male with no significant past medical history who is a poor historian presents to ER with complaints of Abdominal Pain. Patient reports nausea, vomiting, diarrhea, and diffuse abdominal pain for 2 months. He also reports significant weight loss. He thought that he just had some stomach virus but states that it has persisted and he can barely hold anything down anymore. He denies any chronic medical issues or daily medications. Patient was assessed in the ER and was found to have anemia and acute kidney injury and dehydrated and was admitted for further management. He underwent a CT of the abdomen pelvis which showed the following findings IMPRESSION: Segment of nodular wall thickening along the lower rectum and anal canal, raises concern for malignancy. Large bilobed hypoattenuating mass near the right hepatic dome, largest component measures 9.3 cm, may represent a primary or metastatic mass. Numerous pulmonary nodules concerning for pulmonary metastases. Mildly prominent retroperitoneal and left pelvic sidewall lymph nodes, concern ing for metastatic adenopathy. Moderate right hydronephrosis and hydroureter, without evidence of an obstructing calculus. Findings may relate to retrograde ureteral reflux or a distal stricture. Patient is being admitted for further management Allergies No Known Allergies Allergy (Verified 11/20/23 20:57) Home Medications: NK [No Home Meds] 11/20/23 - Past Medical/Surgical History Past Medical History: Reviewed- Non-Contributory Past Surgical History: Reviewed- Non-Contributory - Family History Family History: Reviewed- Non-Contributory - Social History Smoking Status: Current some day smoker Review of Systems 10-point ROS is otherwise unremarkable Physical Examination - Vital Signs Temperature: 98.4 F Blood Pressure: 151/74 Pulse: 76 Respirations: 18 Pulse Ox (%): 98 - Physical Exam General: Alert, In no apparent distress, Cooperative, Cachectic HEENT: Atraumatic, Normocephalic Neck: Supple, 2+ carotid pulse no bruit Respiratory: Clear to auscultation bilaterally, Normal air movement Cardiovascular: Regular rate/rhythm, Normal S1 S2 Capillary refill: <2 Seconds Gastrointestinal: Non-distended, No ascites, No rebound, Tenderness Musculoskeletal: No clubbing, No swelling Integumentary: No significant lesion, No tenderness/swelling, No cyanosis Neurological: Normal speech, Normal strength at 5/5 x4 extr, Cranial nerves 3-12 intact, Normal reflexes 2+, Normal affect - Studies Laboratory Data (last 24 hrs) 11/20/23 11/20/23 11/20/23 15:15 15:15 15:15 WBC 13.80 H Hgb 6.8 L Hct 21.5 L Plt Count 789 H PT 13.3 H INR 1.22 APTT 26.8 Sodium 137 Potassium 3.6 BUN 28 H Creatinine 1.61 H Glucose 102 Total Bilirubin 0.3 AST 26 ALT 14 L Alkaline Phosphatase 178 H Lipase 48 Assessment and Plan - Problems (Diagnosis) (1) Anemia Current Visit: Yes Status: Acute Plan: Anemia of chronic disease/chronic blood loss Pain control Will transfuse 1 unit PRBCs Monitor CBC Transfuse as needed Patient denies any active bleeding or melena (2) UTI (urinary tract infection) Current Visit: Yes Status: Acute Plan: Will start on antibiotics IV hydration Monitor lactic acid level Will obtain cultures (3) Elevated lactic acid level Current Visit: Yes Status: Acute Plan: Will trend lactic acid levels Continue IV hydration and antibiotics Cultures monitor (4) Acute kidney injury Current Visit: Yes Status: Acute Plan: Possibly due to dehydration Will start on IV hydration Monitor renal parameters Electrolytes monitor and replace accordingly (5) Rectal malignant neoplasm Current Visit: Yes Status: Acute Plan: CT findings noted IMPRESSION: Segment of nodular wall thickening along the lower rectum and anal canal, raises concern for malignancy. Large bilobed hypoattenuating mass near the right hepatic dome, largest component measures 9.3 cm, may represent a primary or metastatic mass. Numerous pulmonary nodules concerning for pulmonary metastases. Mildly prominent retroperitoneal and left pelvic sidewall lymph nodes, concerning for metastatic adenopathy. Moderate right hydronephrosis and hydroureter, without evidence of an obstructing calculus. Findings may relate to retrograde ureteral reflux or a distal stricture. Will get a GI consult Will need further workup as an outpatient (6) Protein-calorie malnutrition, moderate Current Visit: Yes Status: Acute Plan: Will get a load out supervisor consult Discharge Plan: Home Plan to discharge in: 24 Hours - Advance Directives Does patient have a Living Will: No Does patient have a Durable POA for Healthcare: No - Code Status/Comfort Care Code Status: Full Code Time Spent Managing Pts Care (In Minutes): 48
[2023-11-20] MEDS: PANTOPRAZOLE 40 MG INJ IVP SCH (21:00)
[2023-11-20] MEDS ORDERED: PANTOPRAZOLE 40 MG INJ ONE (21:13)
[2023-11-20] MEDS ORDERED: LOPERAMIDE HCL 2 MG CAPSULE ONE (21:13)
[2023-11-20] MEDS: LOPERAMIDE HCL 2 MG CAPSULE PO STA (21:26)
[2023-11-20 21:32] VITALS: O2SAT 100; BMI 20.3
[2023-11-21] MEDS ORDERED: PIPERACIL/TAZO 3.375 GM VIAL IV ONE ×2 (01:15→08:11)
[2023-11-21] MEDS ORDERED: NA CHLORIDE 0.9% 100 ML ONE ×2 (01:15→08:11)
[2023-11-21] MEDS: PIPER TAZO 3.375 GM in NA CHLORIDE 0.9% 100 ML IV SCH (01:25)
[2023-11-21 03:47] LABS: Absolute Eosinophils 0.1 K/uL (0-0.5); Absolute Neutrophil 7.7 K/uL (1.8-8.0); Basophils % 0.3 % (0-1.3); Eosinophils % 0.5 % (0-4.4); Hematocrit 20.3 % (39.6-49.0); Hemoglobin 6.7 g/dL (13.6-17.9); Lymphocytes % 10.2 % (15.3-44.8); MCH 25.2 pg (27.0-35.0); MCHC 32.9 g/dL (32.0-36.0); MCV 76.5 fL (80-100); MPV 6.3 fL (7.6-11.3); Monocytes % 10.4 % (3.3-12.3); Neutrophils % 78.6 % (41.7-73.7); Nucleated Red Blood Cells % 0.1 % (0-0); Platelets 570 thou/uL (152-406); RBC Red Blood Cell Count 2.66 M/uL (4.33-5.43)
[2023-11-21 03:56] LABS: AST/SGOT 16 U/L (15-37); Albumin 1.5 g/dL (3.4-5.0); Albumin/Globulin Ratio 0.3 (1.1-1.8); Alkaline Phosphatase 132 U/L (45-117); Anion Gap 8.7 mEq/L (5.0-15.0); BUN Blood Urea Nitrogen 23 mg/dL (7-18); Bicarbonate 24 mEq/L (21-32); Bilirubin Total 0.6 mg/dL (0.2-1.0); Globulin 4.7 g/dL (2.3-3.5); Glomerular Filtration Rate 70 ml/min (=/>90); Glucose Level 86 mg/dL (74-106); Potassium 3.7 mEq/L (3.5-5.1); Protein, Total 6.2 g/dL (6.4-8.2); Sodium Level 138 mEq/L (136-145)
[2023-11-21 04:07] LABS: ALT/SGPT < 10 U/L (16-61)
[2023-11-21] MEDS ORDERED: LOPERAMIDE HCL 2 MG CAPSULE ONE (04:10)
[2023-11-21] MEDS: LOPERAMIDE HCL 2 MG CAPSULE PO PRN (04:14)
[2023-11-21 04:19] LABS: Red Cell Distribution Width 21.6 % (12.1-15.2)
[2023-11-21] MEDS: KCL 20 MEQ/100 mL IVPB 20 MEQ/100 ML BAG IV SCH (08:00)
[2023-11-21] MEDS ORDERED: KCL 20 MEQ/100 mL IVPB 0 ML IV ONE (08:11)
[2023-11-21] MEDS ORDERED: PANTOPRAZOLE 40 MG INJ ONE (08:11)
[2023-11-21] MEDS ORDERED: POTASSIUM CL SA 10 MEQ TAB PO ONE ×2 (10:13→10:15)
--- NOTE | 2023-11-21 16:31 | P.PN ---
Subjective Date of Service: 11/21/23 Chief Complaint: Generalized weakness Patient has no new. He is eating well. He denies any pain. He was seen sitting up in bed unsupported. Physical Examination - Vital Signs Temperature: 97.9 F Blood Pressure: 146/77 Pulse: 90 Respirations: 16 Pulse Ox (%): 100 - Studies Laboratory Data (last 24 hrs) 11/20/23 15:15 WBC 13.80 H Hgb 6.8 L Hct 21.5 L Plt Count 789 H Assessment And Plan - Plan Physical Exam General: Alert, In no apparent distress, Cooperative. Neck: Supple, no elevated JVD. Respiratory: Clear to auscultation bilaterally, Normal air movement Cardiovascular: Regular rate/rhythm, Normal S1 S2 Gastrointestinal: Non-distended, No ascites, No rebound, Tenderness Musculoskeletal: No clubbing, No swelling Integumentary: No significant lesion, No tenderness/swelling, No cyanosis Neurological: Normal speech, No focal motor deficit. Assessment and Plan Anemia Anemia of chronic disease/chronic blood loss, could be related to the rectal lesion. Patient denies any active bleeding or melena Status post transfuse 1 unit PRBCs. Check post-transfusion hemoglobin and transfuse as needed for hemoglobin less than 7. Monitor CBC UTI (urinary tract infection) IV Zosyn IV hydration Follow urine culture Acute kidney injury Likely prerenal secondary to dehydration. CHACORTA resolved with IV fluid. . 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 Possible urinary stricture. Patient will need a biopsy. GI consulted to evaluate Urology consult for hydronephrosis and hydroureter. Moderate protein-calorie malnutrition Likely secondary to malignancy Nutritional supplementation Discharge Plan: Home Plan to discharge in: 24 Hours
[2023-11-21 17:25] LABS: Hematocrit 18.6 % (39.6-49.0)
[2023-11-21] MEDS: NA CHLORIDE 0.9% 250 ML ONE (23:31)
[2023-11-22 00:55] LABS: C.diff Antigen/Toxin Ag neg : Tox neg (NEG : NEG); CDIFF INTERNAL NEG CONTROL White Background (WHITE BKGD); STOOL CONSISTENCY Liquid/Semi-Solid
[2023-11-22 07:14] LABS: Absolute Eosinophils 0.1 K/uL (0-0.5); Absolute Lymphocytes (CBC) 1.1 K/uL (0.7-4.9); Absolute Monocytes 0.7 K/uL (0.1-1.3); Basophils % 0.5 % (0-1.3); Eosinophils % 1.8 % (0-4.4); Hematocrit 21.9 % (39.6-49.0); Hemoglobin 7.2 g/dL (13.6-17.9); Lymphocytes % 15.8 % (15.3-44.8); MCH 25.8 pg (27.0-35.0); MCHC 32.9 g/dL (32.0-36.0); MCV 78.6 fL (80-100); MPV 6.3 fL (7.6-11.3); Monocytes % 9.5 % (3.3-12.3); Neutrophils % 72.4 % (41.7-73.7); Nucleated Red Blood Cells % 0.1 % (0-0); Platelets 504 thou/uL (152-406); RBC Red Blood Cell Count 2.79 M/uL (4.33-5.43)
[2023-11-22 07:22] LABS: Anion Gap 6.9 mEq/L (5.0-15.0); Magnesium 1.9 mg/dL (1.6-2.4); Phosphorus 2.3 mg/dL (2.5-4.9); Potassium 3.9 mEq/L (3.5-5.1)
[2023-11-22] MEDS: POTASSIUM 25 MEQ EFFERV TAB PO ONE (09:42)
[2023-11-22] MEDS: POTASS/SODIUM PHOSPHATE 1 PKT POWD.PACK PO SCH (09:44)
[2023-11-22] MEDS ORDERED: NA CHLORIDE 0.9% 250 ML IV SCH (12:00)
--- NOTE | 2023-11-22 14:24 | P.PN ---
Subjective Date of Service: 11/22/23 Chief Complaint: Generalized weakness Patient denies any new complaint. He is tolerating his diet and want a double portion No significant postvoid residual. Physical Examination - Vital Signs Temperature: 98.1 F Blood Pressure: 133/72 Pulse: 74 Respirations: 17 Pulse Ox (%): 98 - Studies Laboratory Data (last 24 hrs) 11/22/23 11/22/23 11/21/23 06:40 06:40 17:17 WBC 6.90 Hgb 7.2 L D 6.0 L D Hct 21.9 L 18.6 L Plt Count 504 H Sodium 134 L Potassium 3.9 BUN 21 H Creatinine 1.12 Glucose 80 Phosphorus 2.3 L Magnesium 1.9 Assessment And Plan - Plan Physical Exam General: Alert, In no apparent distress. Respiratory: Clear to auscultation bilaterally, Normal air movement Cardiovascular: Regular rate/rhythm, Normal S1 S2 Gastrointestinal: Non-distended, No ascites, No rebound, Tenderness Musculoskeletal: No clubbing, No swelling Integumentary: No significant lesion, No tenderness/swelling, No cyanosis Neurological: Normal speech, No focal motor deficit. Assessment and Plan Anemia Anemia of chronic disease/chronic blood loss, could be related to the rectal lesion. Patient denies any active bleeding or melena Status post transfuse 1 unit PRBCs. Transfuse 1 more unit to keep hemoglobin around [address] Dodge. Monitor CBC UTI (urinary tract infection) Urine cultures growing gram-negative rods. Continue IV Zosyn IV hydration Follow urine culture Acute kidney injury Likely prerenal secondary to dehydration. CHACORTA resolved with IV fluid. . 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 Possible urinary stricture. Patient will need a biopsy. GI consulted to evaluate. I spoke to Dr. Wade who recommended outpatient colonoscopy and EGD for biopsies. Patient with hepatic mass. I discussed with radiology about the feasibility of image guided liver biopsy. Ultrasound-guided liver biopsy requested. Urology consulted for hydronephrosis and hydroureter. Moderate protein-calorie malnutrition Likely secondary to malignancy Nutritional supplementation Discharge Plan: Home Plan to discharge in: 24 Hours DVT prophylaxis: Lovenox is on hold for liver biopsy.
[2023-11-22 20:58] LABS: Hematocrit 24.5 % (39.6-49.0); Hemoglobin 8.2 g/dL (13.6-17.9)
[2023-11-22] MEDS: ENSURE ENLIVE 237 ML CAN PO SCH (21:00)
[2023-11-23 04:38] LABS: Anion Gap 10.1 mEq/L (5.0-15.0); Phosphorus 2.5 mg/dL (2.5-4.9); Potassium 4.1 mEq/L (3.5-5.1)
--- NOTE | 2023-11-23 11:26 | RAD REPORT ---
EXAM DESCRIPTION: US - Urinary Bladder - 11/23/2023 9:22 am CLINICAL HISTORY: Abdominal pain. Assess postvoid residual FINDINGS: Prevoid bladder volume equals 250 cc Postvoid bladder volume equals 221 cc No ascites IMPRESSION: Prevoid bladder volume equals 250 cc Postvoid bladder volume equals 221 cc
[2023-11-23] MEDS: CIPROFLOXACIN HCL 500 MG TAB PO SCH (12:54)
--- NOTE | 2023-11-23 13:28 | P.PN ---
Subjective Date of Service: 11/23/23 Chief Complaint: Generalized weakness Patient denies any new complaint. No significant postvoid residual. Patient denies any pain. Physical Examination - Vital Signs Temperature: 98.7 F Blood Pressure: 127/60 Pulse: 79 Respirations: 14 Pulse Ox (%): 97 - Studies Microbiology Data (last 24 hrs): 11/20/23 18:56 Clean Catch Urine Osborn Count - Final >100,000 CFU/ML. 11/20/23 18:56 Clean Catch Urine - Final Escherichia Coli Assessment And Plan - Plan Physical Exam General: Alert, In no apparent distress. Respiratory: Clear to auscultation bilaterally, Normal air movement Cardiovascular: Regular rate/rhythm, Normal S1 S2 Gastrointestinal: Non-distended, No ascites, No rebound, Tenderness Musculoskeletal: No clubbing, No swelling Integumentary: No significant lesion, No tenderness/swelling, No cyanosis Neurological: Normal speech, No focal motor deficit. Assessment and Plan Anemia Anemia of chronic disease/chronic blood loss, could be related to the rectal lesion. Patient denies any active bleeding or melena Status post transfuse 2 unit PRBCs with target hemoglobin of 8 or more. Monitor CBC UTI (urinary tract infection) Urine cultures E. coli. Change antibiotics to oral ciprofloxacin. IV hydration Acute kidney injury Likely prerenal secondary to dehydration. CHACORTA resolved with IV fluid. . Rectal malignant neoplasm/liver mass Right hydronephrosis and hydroureter Pulmonary metastasis Diarrhea Suspected rectal malignancy with liver and pulmonary metastasis. Possible urinary tract stricture. GI consulted to evaluate. I spoke to Dr. Wade who recommended outpatient colonoscopy and EGD for biopsies. Patient with hepatic mass. I discussed with radiology about the feasibility of image guided liver biopsy. Radiology recommended ultrasound-guided liver biopsy which has been requested. I was informed this procedure may have to be rescheduled due to staff unavailability. Considering US guided liver biopsy as outpatient. Urology has evaluated patient and managing hydronephrosis and hydroureter. Moderate protein-calorie malnutrition Likely secondary to malignancy Nutritional supplementation High-calorie diet as tolerated Discharge Plan: Home DVT prophylaxis: Lovenox is on hold for liver biopsy.
[2023-11-23] MEDS: metroNIDAZOLE 500 MG TABLET PO SCH (14:00)
--- NOTE | 2023-11-23 20:25 | P.CNS ---
Date of Consult: 11/23/23 Reason for Consult: Hydronephrosis Requesting Physician: bello meyer Chief Complaint: Generalized weakness History of Present Illness: 68-year-old gentleman with no documented past medical history presents having been seen in the emergency department 11/20/2023 with complaints of abdominal pain associated with nausea, vomiting, and diarrhea. Those symptoms have lasted for over 2 months, and he had begun to lose significant weight associated with the anorexia and lack of an appetite. It is because of those symptoms that he finally came to the emergency department for evaluation. He acknowledged some history of Meek catheter being placed after trauma done years ago, and within the last few days, he says after admission, he developed severe irritative and obstructive LUTS as follows: Frequency/urgency/intermittency/weak stream/straining 5 Nocturia 2 AUA symptom score 27/35 and he also acknowledges the presence of some urge incontinence. He denies those symptoms being present prior to the admission. Examination: Patient thin but well-appearing and in no acute distress Seated at bedside eating lunch No dyspnea or sign of respiratory distress Alert, awake, oriented Abdomen nontender 11/20/2023 creatinine 1.61, lactic acid 3.4, alkaline phosphatase 178, WBC 13.8, hemoglobin 6.8, platelets 789, INR 1.22, UA micro 2+ leukocyte Estrace, negative nitrites, 5-10 RBCs per hpf, over 50 WBCs per hpf, no squamous epithelials. Urine culture >100K E. coli resistant to Augmentin/Unasyn otherwise sensitive 11/21/2023 CEA 621.8, CA 19-9 and AFP both pending 11/22/2023 creatinine 1.12, WBC 6.9, hemoglobin 7.2, platelets 504 11/20/2023 CT chest abdomen and pelvis without contrast impression: Segment of nodular wall thickening along the lower rectum and anal canal, raises concern for malignancy. Large bilobed hypoattenuating mass near the right hepatic dome, largest component measures 9.3 cm may represent a primary or metastatic mass. Numerous pulmonary nodules concerning for pulmonary metastases. Mildly prominent retroperitoneal and left pelvic sidewall lymph nodes, concerning for metastatic adenopathy. Assessment and recommendation: 68-year-old gentleman with no documented past medical history with severe i rritative and obstructive LUTS potentially due to BPH, right-sided hydroureteronephrosis with CHACORTA, likely due to dehydration with lactic acidosis, without obstructing stone, likely secondary to poor detrusor compliance, complicated by PCN resistant EColi UTI. -I reviewed the imaging of the CT in detail, and indeed the bladder was distended but infraumbilical. The hydroureteronephrosis on the right side was present with tortuosity extending down to the UVJ. -Bladder scan ultrasonography performed revealing 250 cc prevoid and 221 cc postvoid Recommendation: -Initiate Flomax 0.4 mg daily at bedtime -Renal and bladder ultrasound to assess for persistence of the right-sided hydronephrosis and for improvement in his postvoid residual after 2 to 3 weeks on the Flomax. If persistent hydronephrosis, operative evaluation with cystoscopy and retrograde pyelography with right ureteral stent placement may be required. If hydronephrosis resolves, outpatient cystoscopy to evaluate the nature of his obstruction would be recommended. -Check PSA prior to follow-up Allergies No Known Allergies Allergy (Verified 11/21/23 14:04) Home medications list reviewed: Yes Home Medications: NK [No Home Meds] 11/20/23 - Past Medical/Surgical History Diabetic: No Past Medical History: Reviewed- Non-Contributory -: HTN - Social History Smoking Status: Current every day smoker Alcohol use: No CD- Drugs: No Place of Residence: Home Physical Examination Temp Pulse Resp BP Pulse Ox 97.9 F 79 16 153/77 H 98 11/23/23 16:00 11/23/23 16:00 11/23/23 16:00 11/23/23 16:00 11/23/23 16:00 - Problems (1) BPH loc w urin obs/LUTS Current Visit: Yes Status: Acute (2) Incomplete emptying of bladder Current Visit: Yes Status: Acute (3) Complicated UTI (urinary tract infection) Current Visit: Yes Status: Acute (4) Hydroureter, right Current Visit: Yes Status: Acute (5) Hydronephrosis, right Current Visit: Yes Status: Acute (6) Acute kidney injury Current Visit: Yes Status: Acute Conclusions/Impression: see A&P in HPI Critical Care: No Time Spent Managing Pts care (In Minutes): 45
[2023-11-23] MEDS: TAMSULOSIN 0.4 MG SR CAP PO SCH (21:18)
[2023-11-24 02:54] LABS: Absolute Eosinophils 0.1 K/uL (0-0.5); Absolute Lymphocytes (CBC) 1.1 K/uL (0.7-4.9); Absolute Monocytes 0.8 K/uL (0.1-1.3); Absolute Neutrophil 6.1 K/uL (1.8-8.0); Basophils % 0.4 % (0-1.3); Eosinophils % 1.4 % (0-4.4); Hematocrit 25.3 % (39.6-49.0); Hemoglobin 8.4 g/dL (13.6-17.9); Lymphocytes % 13.5 % (15.3-44.8); MCH 26.4 pg (27.0-35.0); MCHC 33.3 g/dL (32.0-36.0); MCV 79.1 fL (80-100); MPV 6.3 fL (7.6-11.3); Neutrophils % 74.7 % (41.7-73.7); Nucleated Red Blood Cells % 0.1 % (0-0); Platelets 502 thou/uL (152-406); Red Cell Distribution Width 21.5 % (12.1-15.2)
[2023-11-24 03:15] LABS: Anion Gap 6.1 mEq/L (5.0-15.0); Potassium 4.1 mEq/L (3.5-5.1)
[2023-11-24 07:42] LABS: CA 19-9 Antigen <3 U/mL (<34)
[2023-11-24 10:01] VITALS: TEMP 98.2
[2023-11-24 15:35] VITALS: BP 129/82
--- NOTE | 2023-11-24 17:05 | P.DS ---
Admission Date: 11/22/23 Discharge Date: 11/24/23 Disposition: ROUTINE DISCHARGE Discharge Condition: FAIR Reason for Admission: Generalized weakness Brief History of Present Illness: 68 yrs old Male with no significant past medical history who is a poor historian presentsed to ER with complaints of Abdominal Pain. Patient reported nausea, vomiting, diarrhea, and diffuse abdominal pain for 2 months. He also reported significant weight loss. Patient was assessed in the ER and was found to have anemia and acute kidney injury and dehydrated and was admitted for further management. He underwent a CT of the abdomen pelvis which showed the following findings segment of nodular wall thickening along the lower rectum and anal canal, raises concern for malignancy, large bilobed hypoattenuating mass near the right hepati c dome, largest component measures 9.3 cm, may represent a primary or metastatic mass, numerous pulmonary nodules concerning for pulmonary metastases, mildly prominent retroperitoneal and left pelvic sidewall lymph nodes, concerning for metastatic adenopathy. It also showed moderate right hydronephrosis and hydroureter, without evidence of an obstructing calculus. F Patient was admitted for further management Hospital Course: Anemia Anemia of chronic disease/chronic blood loss, could be related to the rectal lesion. Patient denied any active bleeding or melena Status post transfuse 2 unit PRBCs. UTI (urinary tract infection) Urine cultures E. coli. Initially on IV Zosyn, changed antibiotics to oral ciprofloxacin. Acute kidney injury Likely prerenal secondary to dehydration. CHACORTA resolved with IV fluid. Rectal malignant neoplasm/liver mass Right hydronephrosis and hydroureter Pulmonary metastasis Diarrhea Suspected rectal malignancy with liver and pulmonary metastasis. Possible urinary tract stricture. GI consulted to evaluate. I spoke to Dr. Wade who recommended outpatient colonoscopy and EGD for biopsies. Patient with hepatic mass. I discussed with radiology about the feasibility of image guided liver biopsy. Radiology recommended ultrasound-guided liver biopsy which has been requested. I was informed this procedure may have to be rescheduled due to staff unavailability. Moderate protein-calorie malnutrition Patient has a liver mass and a thickening of the wall of the rectum highly suspicious for cancer. Patient was seen by GI Dr. Dodge was scheduled him for outpatient colonoscopy for rectal biopsy next week. Patient also need outpatient ultrasound guided liver biopsy next week. An arrangement has been set up by staff for scheduling by day surgery next week Monday for the biopsy. Patient had diarrhea likely related to the rectal lesions. He was empirically treated with IV Zosyn and transition to oral ciprofloxacin and Flagyl. He has been told to establish care with a PCP. Patient given list of PCP to establish care with. He was seen by urology Dr. Molina for hydronephrosis(swollen kidney and hydroureter(swollen tube leaking from the kidney to the urinary bladder). Dr. Molina ordered postvoid bladder ultrasound which indicate some degree of urinary retention. Patient reported prior lower urinary tract symptoms. BPH suspected, place and is placed on Flomax. Dr. Molina plans to follow-up with patient within 2 to 3 weeks to reevaluate for urinary retention and also the hydronephrosis. Patient has been informed about the high likelihood of malignancy and that is very important the above-named biopsies are done for diagnosis. Patient voids understanding and agreed to comply with above instructions. Vital Signs/Physical Exam: Temp Pulse Resp BP Pulse Ox 98.2 F 94 H 15 129/82 100 11/24/23 12:00 11/24/23 12:00 11/24/23 12:00 11/24/23 12:00 11/24/23 12:00 General: Alert, In no apparent distress, Cachectic HEENT: Normocephalic, Mucous membr. moist/pink Neck: Supple, JVD not distended Respiratory: Clear to auscultation bilaterally, Normal air movement Cardiovascular: No edema, Regular rate/rhythm, Normal S1 S2 Capillary refill: <2 Seconds Gastrointestinal: Normal bowel sounds, Soft and benign, Non-distended, No tenderness Musculoskeletal: No swelling, No tenderness Integumentary: No rashes, No cyanosis Neurological: Normal strength at 5/5 x4 extr Laboratory Data at Discharge: WBC 8.20 thou/uL (4.3-10.9) 11/24/23 02:30 Hgb 8.4 g/dL (13.6-17.9) L 11/24/23 02:30 Hct 25.3 % (39.6-49.0) L 11/24/23 02:30 Plt Count 502 thou/uL (152-406) H 11/24/23 02:30 PT 13.3 SECONDS (9.5-12.5) H 11/20/23 15:15 INR 1.22 11/20/23 15:15 APTT 26.8 SECONDS (24.3-36.9) 11/20/23 15:15 Sodium 132 mEq/L (136-145) L 11/24/23 02:30 Potassium 4.1 mEq/L (3.5-5.1) 11/24/23 02:30 BUN 25 mg/dL (7-18) H 11/24/23 02:30 Creatinine 1.38 mg/dL (0.70-1.30) H 11/24/23 02:30 Glucose 107 mg/dL (74-106) H 11/24/23 02:30 Phosphorus 2.5 mg/dL (2.5-4.9) 11/23/23 04:00 Magnesium 1.9 mg/dL (1.6-2.4) 11/22/23 06:40 Total Bilirubin 0.6 mg/dL (0.2-1.0) 11/21/23 03:04 AST 16 U/L (15-37) 11/21/23 03:04 ALT < 10 U/L (16-61) L 11/21/23 03:04 Alkaline Phosphatase 132 U/L (45-117) H D 11/21/23 03:04 Lipase 48 U/L (13-75) 11/20/23 15:15 Home Medications: Ciprofloxacin HCl [Cipro] 500 mg PO BID #10 tab 11/24/23 Ensure Enlive 237 ml PO BID #20 can 11/24/23 Tamsulosin [Flomax*] 0.4 mg PO BEDTIME #30 cap 11/24/23 metroNIDAZOLE [Flagyl*] 500 mg PO TID #15 tab 11/24/23 New Medications: Ciprofloxacin HCl [Cipro] 500 mg PO BID #10 tab Ensure Enlive 237 ml PO BID #20 can metroNIDAZOLE [Flagyl*] 500 mg PO TID #15 tab Tamsulosin [Flomax*] 0.4 mg PO BEDTIME #30 cap Physician Discharge Instructions: Patient has a liver mass and a thickening of the wall of the rectum highly suspicious for cancer. Patient was seen by GI Dr. Dodge was scheduled him for outpatient colonoscopy for rectal biopsy next week. Patient also need outpatient ultrasound guided liver biopsy next week. An arrangement has been set up by staff for scheduling by day surgery next week Monday for the biopsy. Patient had diarrhea likely related to the rectal lesions. He was empirically treated with IV Zosyn and transition to oral ciprofloxacin and Flagyl. He has been told to establish care with a PCP. Patient given list of PCP to establish care with. He was seen by urology Dr. Molina for hydronephrosis(swollen kidney and hydroureter(swollen tube leaking from the kidney to the urinary bladder). Dr. Molina ordered postvoid bladder ultrasound which indicate some degree of urinary retention. Patient reported prior lower urinary tract symptoms. BPH suspected, place and is placed on Flomax. Dr. Molina plans to follow-up with patient within 2 to 3 weeks to reevaluate for urinary retention and also the hydronephrosis. Patient has been informed about the high likelihood of malignancy and that is very important the above-named biopsies are done for diagnosis. Patient voids understanding and agreed to comply with above instructions. Diet: AHA Activity: Ad aishwarya Followup: NONE,NONE [Primary Care Provider] - Melvin Dodge MD [ACTIVE - CAN ADMIT] - 1 Week Jose Molina [ACTIVE - CAN ADMIT] - (Within 2 to 3 weeks.) Time spent managing pt's care (in minutes): 42
[2023-11-27 15:42] LABS: Alpha Fetoprotein-Tumor Marker 1.6 ng/mL (<6.1)
== END 2023-11-24 18:19 | disposition home or self-care (01) | DRG 375 ==
LOC: ER 13:55 → ERHOLD 19:59 → 4TH 11-21 11:41 → OBSVTOIN 11-22 12:47
PROVIDERS: ADMIT Family Medicine; ATTEND Internal Medicine
PROC: 30233N1 Transfusion of Nonautologous Red Blood Cells into Peripheral Vein, Percutaneous Approach (ICD-10-PCS; principal; 2023-11-22)
DX: C20 Malignant neoplasm of rectum (principal); C78.00 Secondary malignant neoplasm of unspecified lung; R65.10 Systemic inflammatory response syndrome (SIRS) of non-infectious origin without acute organ dysfunction; N17.9 Acute kidney failure, unspecified; C78.7 Secondary malignant neoplasm of liver and intrahepatic bile duct; R64 Cachexia; E44.0 Moderate protein-calorie malnutrition; N13.6 Pyonephrosis; Z16.29 Resistance to other single specified antibiotic; E87.20 Acidosis, unspecified; N13.8 Other obstructive and reflux uropathy; N40.1 Benign prostatic hyperplasia with lower urinary tract symptoms; D63.0 Anemia in neoplastic disease; I10 Essential (primary) hypertension; E86.0 Dehydration; F17.210 Nicotine dependence, cigarettes, uncomplicated; B96.20 Unspecified Escherichia coli [E. coli] as the cause of diseases classified elsewhere; R33.8 Other retention of urine; Z68.20 Body mass index [BMI] 20.0-20.9, adult; Z28.310 Unvaccinated for COVID-19; Z79.899 Other long term (current) drug therapy
CPT/HCPCS: 36415; 36430; 71250; 74176; 76857; 80048; 80053; 81001; 82105; 82378; 83605; 83690; 83735; 84100; 85014; 85018; 85025; 85610; 85730; 86301; 86850; 86900; 86901; 86920; 87040; 87077; 87086; 87088; 87186; 87324; 96361; 96374; 99285; C9113; G0378; J2405; J2543; J3480; J7030; J7040; J7050; P9016

== ENCOUNTER 2023-11-24 23:01 | Emergency (ER) | payer OTHER ==
--- NOTE | 2023-11-24 23:26 | EDPHYS ---
Physician Documentation [facility] Name: Mikael Fry Age: 68 yrs Sex: Male : 1955 Arrival Date: 11/24/2023 Time: 23:01 Bed IW1 Private MD: ED Physician Zion Tamayo HPI: 11/23 23:27 This 68 yrs old Male presents to ER via Ambulatory with complaints of Anxiety, sb4 PT STATES HE IS SCARED TO GO HOME AND FALL ASLEEP. 23:27 Patient was seen in the ED by me a few days ago and admitted. He was diagnosed with sb4 rectal cancer with liver and lung mets. Inpatient team stabilized him and set up follow-up appointments for him this coming week and he was discharged that evening. States that he is anxious about going home and being by himself. He is worried that he is going to in his sleep. Historical: - Allergies: 23:16 No Known Allergies; bm8 - Home Meds: 23:16 Unable to obtain [Active]; bm8 - PMHx: 23:16 Hypertensive disorder; bm8 - PSHx: 23:16 None; bm8 - Immunization history:: Adult Immunizations not up to date. - Infectious Disease History:: Denies. - Social history:: Smoking status: Patient reports the use of cigarette tobacco products, smokes one pack cigarettes per day. ROS: 23:27 Constitutional: Negative for fever, chills, and weight loss, sb4 23:27 Neuro: Positive for 23:27 Psych: Positive for anxiety, insomnia, 23:27 All other systems are negative, Exam: 23:27 Head/Face: Normocephalic, atraumatic. Eyes: Extra-ocular motions intact. Periorbital sb4 areas with no swelling, redness, or edema. ENT: Mucous membranes moist. 23:27 Constitutional: The patient appears alert, awake, anxious, frail, 23:27 Psych: Behavior/mood is anxious, Affect is flat, Oriented to person, place, time, Patient has no thoughts/intents to harm self or others. Judgement / Insight is normal. Memory is normal. Delusions/hallucinations are not present. Vital Signs: 23:15 BP 157 / 86; Pulse 99; Resp 17; Temp 98.5; Pulse Ox 100% on R/A; Weight 54.43 kg; bm8 Height 5 ft. 5 in. ; Pain 03/16; 23:15 Body Mass Index 19.97 (54.43 kg, 165.1 cm) bm8 23:15 Pain Scale: Adult bm8 MDM: 23:08 Patient medically screened. sb4 23:27 Data reviewed: vital signs, nurses notes, and as a result, I will discharge patient. sb4 Counseling: I had a detailed discussion with the patient and/or guardian regarding the historical points, exam findings, and any diagnostic results supporting the discharge/admit diagnosis, to return to the emergency department if symptoms worsen or persist or if there are any questions or concerns that arise at home. Administered Medications: No medications were administered Disposition Summary: 11/24/23 23:25 Discharge Ordered Notes: Location: Home sb4 Problem: new sb4 Symptoms: have improved sb4 Condition: Stable sb4 Diagnosis - Anxiety disorder, unspecified sb4 Followup: sb4 - With: Emergency Department - When: As needed - Reason: Trouble breathing, Worsening of condition Discharge Instructions: - Discharge Summary Sheet sb4 - Managing Anxiety, Adult sb4 Forms: - Thank You Letter sb4 - Patient Portal Instructions sb4 - Leadership Thank You Letter sb4 Signatures: Ashley Luevano PA-C PA-C sb4 Smooth Rob, RN RN bm8
--- NOTE | 2023-11-24 23:26 | ER ---
Nurse's Notes [facility] Name: Mikael Fry Age: 68 yrs Sex: Male : 1955 Arrival Date: 11/24/2023 Time: 23:01 Bed IW1 Private MD: Diagnosis: Anxiety disorder, unspecified Presentation: 11/23 23:15 Chief complaint: Patient states: I am afraid to go to sleep because of how sick I am. bm8 Coronavirus screen: At this time, the client does not indicate any symptoms associated with coronavirus-19. Ebola Screen: Patient negative for fever greater than or equal to 101.5 degrees Fahrenheit, and additional compatible Ebola Virus Disease symptoms Patient denies exposure to infectious person. Patient denies travel to an Ebola-affected area in the 21 days before illness onset. No symptoms or risks identified at this time. Initial Sepsis Screen: Does the patient meet any 2 criteria? No. Patient's initial sepsis screen is negative. Does the patient have a suspected source of infection? No. Patient's initial sepsis screen is negative. Risk Assessment: Do you want to hurt yourself or someone else? Patient reports no desire to harm self or others. Onset of symptoms was November 24, 2023 at 17:00. 23:15 Method Of Arrival: Ambulatory bm8 23:15 Acuity: LISE 3 bm8 23:24 Acuity: LISE 5 bm8 Triage Assessment: 23:16 General: Appears in no apparent distress. comfortable, Behavior is calm, cooperative, bm8 appropriate for age. Pain: Complains of pain in back Pain does not radiate. Pain currently is 8 out of 10 on a pain scale. Quality of pain is described as sharp. EENT: No deficits noted. No signs and/or symptoms were reported regarding the EENT system. Neuro: No deficits noted. Level of Consciousness is awake, alert, obeys commands, Oriented to person, place, time, situation, Appropriate for age. Neuro: Reports that after being discharged earlier today that he is afraid to go home and be home alone because of how sick he is. Cardiovascular: Denies chest pain, shortness of breath, Capillary refill < 3 seconds Patient's skin is warm and dry. Respiratory: Airway is patent Respiratory effort is even, unlabored, Respiratory pattern is regular, symmetrical, Breath sounds are clear bilaterally. GI: No deficits noted. No signs and/or symptoms were reported involving the gastrointestinal system. : No deficits noted. No signs and/or symptoms were reported regarding the genitourinary system. Derm: No deficits noted. No signs and/or symptoms reported regarding the dermatologic system. Musculoskeletal: Reports pain in back. 23:16 Musculoskeletal: Reports. bm8 Historical: - Allergies: 23:16 No Known Allergies; bm8 - Home Meds: 23:16 Unable to obtain [Active]; bm8 - PMHx: 23:16 Hypertensive disorder; bm8 - PSHx: 23:16 None; bm8 - Immunization history:: Adult Immunizations not up to date. - Infectious Disease History:: Denies. - Social history:: Smoking status: Patient reports the use of cigarette tobacco products, smokes one pack cigarettes per day. Screenin:30 [facility] ED Fall Risk Assessment (Adult) History of falling in the last 3 months, bm8 including since admission No falls in past 3 months (0 pts) Confusion or Disorientation No (0 pts) Intoxicated or Sedated No (0 pts) Impaired Gait No (0 pts) Mobility Assist Device Used No (0 pt) Altered Elimination No (0 pt) Score/Fall Risk Level 0 - 2 = Low Risk Oriented to surroundings, Maintained a safe environment, Educated pt \T\ family on fall prevention, incl call for assistance when getting out of bed. Abuse screen: Denies threats or abuse. Nutritional screening: No deficits noted. Tuberculosis screening: No symptoms or risk factors identified. Assessment: 23:30 Reassessment: see triage note. bm8 Vital Signs: 23:15 BP 157 / 86; Pulse 99; Resp 17; Temp 98.5; Pulse Ox 100% on R/A; Weight 54.43 kg; bm8 Height 5 ft. 5 in. ; Pain 8/10; 23:15 Body Mass Index 19.97 (54.43 kg, 165.1 cm) bm8 23:15 Pain Scale: Adult bm8 ED Course: 23:04 Patient arrived in ED. jj6 23:06 Ashley Luevano PA-C is PHCP. sb4 23:06 Zion Tamayo MD is Attending Physician. sb4 23:15 Smooth Rob, RN is Primary Nurse. bm8 23:16 Triage completed. bm8 23:16 Arm band placed on left wrist. bm8 23:30 Patient has correct armband on for positive identification. Provided Education on: POST bm8 ER CARE. 23:30 No provider procedures requiring assistance completed. Patient did not have IV access bm8 during this emergency room visit. Administered Medications: No medications were administered Medication: 23:30 VIS not applicable for this client. bm8 Outcome: 23:25 Discharge ordered by . mark 23:30 Discharged to home ambulatory, bm8 23:30 Condition: stable 23:30 Discharge instructions given to patient, Instructed on discharge instructions, follow up and referral plans. medication usage, Demonstrated understanding of instructions, follow-up care, medications, 23:31 Patient left the ED. bm8 Signatures: Latasha Adrian Sophia, PA-C PA-C valentin4 Smooth Rob, RN RN bm8
[2023-11-24 23:41] VITALS: BP 157/86; TEMP 98.5; O2SAT 100
== END 2023-11-24 23:31 | disposition home or self-care (01) ==
LOC: ER 23:01
DX: F41.9 Anxiety disorder, unspecified (principal); G47.00 Insomnia, unspecified; F17.210 Nicotine dependence, cigarettes, uncomplicated
CPT/HCPCS: 99282

== ENCOUNTER 2023-12-04 07:57 | Day surgery (SDC) | payer OTHER ==
[2023-12-04 10:13] VITALS: BP 136/77; TEMP 97.6; O2SAT 100; BMI 19.3
== END 2023-12-04 09:25 | disposition home or self-care (01) ==
LOC: DS 07:57
PROVIDERS: ATTEND Internal Medicine
DX: R16.0 Hepatomegaly, not elsewhere classified (principal); Z53.8 Procedure and treatment not carried out for other reasons

== ENCOUNTER 2023-12-31 12:30 | Emergency (ER) | payer OTHER ==
[2023-12-31] MEDS ORDERED: NA CHLORIDE 0.9% 1,000 ML ONE (13:08)
[2023-12-31 13:28] LABS: Absolute Lymphocytes (CBC) 0.9 K/uL (0.7-4.9); Absolute Monocytes 0.8 K/uL (0.1-1.3); Absolute Neutrophil 8.5 K/uL (1.8-8.0); Basophils % 0.1 % (0-1.3); Eosinophils % 0.2 % (0-4.4); Hematocrit 23.2 % (39.6-49.0); Hemoglobin 7.3 g/dL (13.6-17.9); Lymphocytes % 8.8 % (15.3-44.8); MCH 26.5 pg (27.0-35.0); MCHC 31.4 g/dL (32.0-36.0); MCV 84.4 fL (80-100); MPV 6.6 fL (7.6-11.3); Monocytes % 7.5 % (3.3-12.3); Neutrophils % 83.4 % (41.7-73.7); Platelets 667 thou/uL (152-406); RBC Red Blood Cell Count 2.74 M/uL (4.33-5.43); Red Cell Distribution Width 20.7 % (12.1-15.2)
--- NOTE | 2023-12-31 13:41 | RAD REPORT ---
EXAM DESCRIPTION: CTAbdomen Pelvis Wo Contrast - 12/31/2023 1:30 pm CLINICAL HISTORY: ABD PAIN COMPARISON: CT ABD PELVIS W CONTRAST dated 03/26/2013; Chest Abd Pelvis Wo Con dated 11/20/2023 TECHNIQUE: CT of the abdomen and pelvis was performed. All CT scans are performed using dose optimization technique as appropriate and may include automated exposure control or mA/KV adjustment according to patient size. FINDINGS: Lower chest: Several pulmonary nodules identified in the lung bases. Example, there is a l esion in the medial left lower lobe measuring 2 cm, slightly larger. Liver: Large liver masses, the largest measuring nearly 10 cm has increased in size. Biliary: No biliary ductal dilatation. Stomach: No significant focal abnormality. Duodenum: No significant focal abnormality. Pancreas: No significant abnormality. Spleen: No significant abnormality. Adrenal: No suspicious lesions. Kidney/ureter: Right-sided hydroureteronephrosis. No renal calculi. Retroperitoneum: Retroperitoneal lymphadenopathy is again noted. One lymph node for example measures 14 millimeters, previously 11 millimeters. Vascular: No aneurysm. Bowel: Large irregular rectal mass. No bowel obstruction. Moderate colonic stool is noted.. Peritoneum: No ascites or free air. Bladder: Pronounced bladder wall thickening. Gas is present with an air-fluid level . Reproductive: Air is present in the central prostate, likely the urethra. Bones: No acute fracture. Other: n/a IMPRESSION: 1. Pronounced bladder wall thickening with air-fluid level. There is also gas within the prostate. This is concerning for possible erosion of the rectal malignancy into the prostate. The bl adder wall is significantly thickened. Alternatively, it could be secondary to recent instrumentation as well. Suggest correlating with urinalysis. 2. Moderate right-sided hydroureteronephrosis. It is uncertain if the level of obstruction of the ure ter is at the level of the rectal mass or possibly at the right UVJ. 3. Progression of metastatic disease including enlarging lung and liver lesions and worsening retrope ritoneal lymphadenopathy. Locally aggressive rectal mass. No bowel obstruction.
[2023-12-31 13:46] LABS: AST/SGOT 11 U/L (15-37); Albumin 1.8 g/dL (3.4-5.0); Albumin/Globulin Ratio 0.4 (1.1-1.8); Alkaline Phosphatase 175 U/L (45-117); Anion Gap 11.1 mEq/L (5.0-15.0); BUN Blood Urea Nitrogen 25 mg/dL (7-18); Bicarbonate 22 mEq/L (21-32); Bilirubin Total 0.3 mg/dL (0.2-1.0); Globulin 4.9 g/dL (2.3-3.5); Glomerular Filtration Rate 68 ml/min (=/>90); Glucose Level 128 mg/dL (74-106); Lipase 22 U/L (13-75); Potassium 3.1 mEq/L (3.5-5.1); Protein, Total 6.7 g/dL (6.4-8.2); Sodium Level 137 mEq/L (136-145)
[2023-12-31 13:50] LABS: ALT/SGPT < 14 U/L (16-61)
[2023-12-31 14:43] LABS: Sqamous Epithelial 20-50 /HPF (None Seen); Urine Bacteria Loaded /HPF (<20); Urine Culture Reflex Order NOT NEEDED; Urine RBC >50 /HPF (None Seen); Urine WBC >50 /HPF (<5); Urine WBC Clump Many /HPF (None Seen)
[2023-12-31 14:46] LABS: Specific Gravity 1.028 (1.005-1.030); Urine Bilirubin 1+ (Negative); Urine Blood 3+ (Negative); Urine Clarity Extremely Turbid (Clear); Urine Glucose NEGATIVE (Negative); Urine Ketones NEGATIVE (Negative); Urine Microscopic Reflex YN NO UMIC; Urine Nitrite NEGATIVE (Negative); Urine Protein 3+ (Negative); Urine Urobilinogen 2+ (Normal); Urine pH 7.5 (5.0-7.0)
[2023-12-31 14:47] LABS: Urine Color Brown (Yellow)
[2023-12-31 15:10] LABS: Anisocytosis 1+; Blood Morphology Comment NOTED (NOT SEEN); Platelet Estimate INCR; White Blood Cell Scan OK (OK)
--- NOTE | 2023-12-31 16:27 | ER ---
Nurse's Notes [facility] Name: Mikael Fry Age: 68 yrs Sex: Male : 1955 Arrival Date: 12/31/2023 Time: 12:30 Bed 10 Private MD: Diagnosis: UTI/ Urinary tract infection, site not specified;Other hydronephrosis;Hydroureter;Fistula of intestine;Malignant rectal mass Presentation: 12/30 12:38 Coronavirus screen: At this time, the client does not indicate any symptoms associated as6 with coronavirus-19. Ebola Screen: No symptoms or risks identified at this time. Risk Assessment: Do you want to hurt yourself or someone else? Patient reports no desire to harm self or others. 12:38 Method Of Arrival: Ambulatory as6 12:40 Chief complaint: Patient states: diarrhea and urinary problem. Initial Sepsis Screen: as6 Does the patient meet any 2 criteria? No. Patient's initial sepsis screen is negative. Does the patient have a suspected source of infection? No. Patient's initial sepsis screen is negative. Onset of symptoms was December 29, 2023. 12:40 Acuity: LISE 3 as6 Triage Assessment: 12:45 General: Appears in no apparent distress. Behavior is calm, cooperative, appropriate bp for age. Pain: Complains of pain in buttocks and left lower quadrant and right lower quadrant. GI: Reports diarrhea. Historical: - Allergies: 12:42 No Known Allergies; as6 - PMHx: 12:42 Hypertensive disorder; colon ca (Hypertensive disorder); as6 - PSHx: 12:42 None; as6 - Immunization history:: Adult Immunizations not up to date. - Infectious Disease History:: Denies. - Social history:: Smoking status: Patient reports the use of cigarette tobacco products, smokes one-half pack cigarettes per day. Screenin:17 [facility] ED Fall Risk Assessment (Adult) History of falling in the last 3 months, bp including since admission No falls in past 3 months (0 pts). Abuse screen: Denies threats or abuse. Denies injuries from another. Nutritional screening: No deficits noted. Tuberculosis screening: No symptoms or risk factors identified. Assessment: 12:45 General: Appears in no apparent distress. Behavior is calm, cooperative, appropriate bp for age. Neuro: No deficits noted. Cardiovascular: No deficits noted. Respiratory: No deficits noted. GI: Reports diarrhea. : No signs and/or symptoms were reported regarding the genitourinary system. EENT: No deficits noted. Derm: No deficits noted. Musculoskeletal: No deficits noted. 15:30 Reassessment: TRANSFER INITIATED. bp 17:39 Reassessment: REPORT TO MARIA DEL CARMEN MELISSA AT [facility] 181. bp 18:36 Reassessment: EMS AT B/S FOR TRANSPORT. bp Vital Signs: 12:40 BP 109 / 72; Pulse 98; Resp 18 S; Temp 98(O); Pulse Ox 100% on R/A; Weight 54.43 kg as6 (R); Height 5 ft. 5 in. (R); Pain 0/10; 15:00 BP 111 / 67; Pulse 95; Resp 16; Temp 98; Pulse Ox 99% ; bp 17:00 BP 113 / 72; Pulse 93; Resp 16; Pulse Ox 98% ; bp 12:40 Body Mass Index 19.97 (54.43 kg, 165.1 cm) as6 12:40 Pain Scale: Adult as6 ED Course: 12:34 Patient arrived in ED. im 12:38 Arm band placed on. as6 12:42 Triage completed. as6 12:46 Emile Garsia, BELÉN is Primary Nurse. bp 12:53 [facility]ender [facility]C [facility] kb 12:53 Julian Martin MD is Attending Physician. kb 13:15 CBC with Diff Sent. bp 13:15 CMP Sent. bp 13:15 Lipase Sent. bp 13:15 Urinalysis w/ reflexes Sent. bp 13:16 Initial lab(s) drawn, by mt, sent to lab. Inserted saline lock: 22 gauge in right bp forearm, using aseptic technique. Blood collected. 13:17 Patient has correct armband on for positive identification. bp 13:[address] hb 13:32 CT Abd/Pelvis - Without Contrast In Process Unspecified. EDMS 15:33 initiated a transfer with Aleena from the [facility] Transfer Center. eb 15:53 connected the surgeon manager of administration for [facility] with Flakita Freight Sorter for patient transfer eb consultation. 16:18 connected the hospitalist manager of administration for [facility] with Flakita Freight Sorter for patient eb transfer consultation. 16:21 administrative approval given by Aleena Parra Rn/ patient has been accepted to [facility] room 1819/ Dr. Kamari Ariza has accepted the patient in transfer/ report to be called to [phone]. 17:40 No provider procedures requiring assistance completed. Patient transferred, IV remains bp in place. Administered Medications: 13:15 Drug: NS 0.9% IV 1000 ml IV at 1 bolus Per protocol; 1000 mL bolus Route: IV; Rate: 1 bp bolus; Site: right forearm; 18:37 Follow up: IV Status: Completed infusion; IV Intake: 1000ml bp 17:24 Drug: Piperacillin-Tazobactam IVPB 3.375 grams IVPB once over 60 mins; (mix in NS 100 bp mL) Route: IVPB; Infused Over: 60 mins; Site: right upper arm; 18:37 Follow up: IV Status: Completed infusion; IV Intake: 100ml bp Medication: 18:37 VIS not applicable for this client. bp Intake: 18:37 IV: 1000ml; Total: 1000ml. bp 18:37 IV: 100ml; Total: 1100ml. bp Outcome: 16:26 ER care complete, transfer ordered by MD. sibley 18:37 Transferred by ground EMS to [facility], bp 18:37 Condition: stable 18:37 Instructed on the need for transfer, 18:50 Patient left the ED. bp Signatures: Dispatcher [employer] EDMS Flakita Bender, CARLOS DRIFTMAN-Odessa Mosley, Emile Camilo RN RN RN Quyen Bolton Ashby, RN RN as6 Sole Simmons
--- NOTE | 2023-12-31 16:27 | EDPHYS ---
Physician Documentation [facility] Name: Mikael Fry Age: 68 yrs Sex: Male : 1955 Arrival Date: 12/31/2023 Time: 12:30 Bed 10 Private MD: ED Physician Julian Martin HPI: 12/30 13:01 This 68 yrs old Male presents to ER via Ambulatory with complaints of Urinary kb Problem, Diarrhea. 13:01 Pt is a 68 year old male who presents for lower abd pain and "pressure" with urination kb and stool in urine that started 2 days ago. States he has chronic diarrhea. Recently had a colonoscopy and was diagnosed with cancer. States he has an appt on Monday for a procedure and to start treatment. Denies fever, vomiting. Historical: - Allergies: 12:42 No Known Allergies; as6 - PMHx: 12:42 Hypertensive disorder; colon ca (Hypertensive disorder); as6 - PSHx: 12:42 None; as6 - Immunization history:: Adult Immunizations not up to date. - Infectious Disease History:: Denies. - Social history:: Smoking status: Patient reports the use of cigarette tobacco products, smokes one-half pack cigarettes per day. ROS: 12:55 Constitutional: As per HPI kb Exam: 13:00 Constitutional: This is a well developed, well nourished patient who is awake, alert, kb and in no acute distress. Head/Face: Normocephalic, atraumatic. ENT: Moist Mucous membranes Cardiovascular: Regular rate Respiratory: Respirations even and unlabored. No increased work of breathing. Talking in full sentences Skin: Warm, dry with normal turgor. Normal color. MS/ Extremity: Pulses equal, no cyanosis. Neurovascular intact. Full, normal range of motion. Neuro: Awake and alert, GCS 15, oriented to person, place, time, and situation. Moves all extremities. Normal gait. 13:00 Abdomen/GI: Inspection: abdomen appears normal, Bowel sounds: normal, Palpation: soft, in all quadrants, mild abdominal tenderness, in the right lower quadrant and left lower quadrant, Vital Signs: 12:40 BP 109 / 72; Pulse 98; Resp 18 S; Temp 98(O); Pulse Ox 100% on R/A; Weight 54.43 kg as6 (R); Height 5 ft. 5 in. (R); Pain 0/10; 15:00 BP 111 / 67; Pulse 95; Resp 16; Temp 98; Pulse Ox 99% ; bp 17:00 BP 113 / 72; Pulse 93; Resp 16; Pulse Ox 98% ; bp 12:40 Body Mass Index 19.97 (54.43 kg, 165.1 cm) as6 12:40 Pain Scale: Adult as6 MDM: 12:53 Patient medically screened. kb 16:24 Data reviewed: vital signs, nurses notes. kb 16:24 Differential diagnosis: uti, fistula, cancer. Consideration of Admission/Observation kb Escalation of care including admission/observation considered. pt will be transferred due to lack of urology coverage, as well as need for colorectal surgeon. Management of patient was discussed with the following: [place]bone Supervisor: Dr Ojeda consulted, recommends transfer. Counseling: I had a detailed discussion with the patient and/or guardian regarding the historical points, exam findings, and any diagnostic results supporting the discharge/admit diagnosis, lab results, radiology results, the need to transfer to another facility, [facility] does not immediately have the required specialist. 16:27 Management of patient was discussed with the following: Debone Supervisor: Dr Barger, surgeon sustainability consultant for colorectal surgeon at [facility], accepts pt for consult. Dr Ariza, hospitalist at [facility], accepts pt for transfer. 12/30 13:00 Order name: CBC with Diff; Complete Time: 15:15 kb 12/30 13:00 Order name: CMP; Complete Time: 13:50 kb 12/30 13:00 Order name: Lipase; Complete Time: 13:50 kb 12/30 13:00 Order name: Urinalysis w/ reflexes; Complete Time: 14:49 kb 12/30 15:10 Order name: CBC Smear Scan; Complete Time: 15:15 EDMS 12/30 16:21 Order name: Blood Culture Adult (2) kb 12/30 16:21 Order name: Lactate w/ 2H reflex if indic.; Complete Time: 18:18 kb 12/30 13:00 Order name: CT Abd/Pelvis - Without Contrast; Complete Time: 13:50 kb 12/30 13:00 Order name: IV Saline Lock; Complete Time: 13:15 kb 12/30 13:00 Order name: Labs collected and sent; Complete Time: 13:15 kb Administered Medications: 13:15 Drug: NS 0.9% IV 1000 ml IV at 1 bolus Per protocol; 1000 mL bolus Route: IV; Rate: 1 bp bolus; Site: right forearm; 18:37 Follow up: IV Status: Completed infusion; IV Intake: 1000ml bp 17:24 Drug: Piperacillin-Tazobactam IVPB 3.375 grams IVPB once over 60 mins; (mix in NS 100 bp mL) Route: IVPB; Infused Over: 60 mins; Site: right upper arm; 18:37 Follow up: IV Status: Completed infusion; IV Intake: 100ml bp Disposition: 19:03 Co-signature as Attending Physician, Julian Martin MD I reviewed the patient's care rt provided by the Advanced Practice Provider and agree with the diagnosis and treatment plan. Disposition Summary: 12/31/23 16:26 Transfer Ordered Notes: Transfer Location: [facility] kb Reason: Higher level of care kb Condition: Stable kb Problem: new kb Symptoms: are unchanged kb Accepting Physician: Dr Ariza(12/31/23 18:50) bp Diagnosis - UTI/ Urinary tract infection, site not specified kb - Other hydronephrosis kb - Hydroureter kb - Fistula of intestine kb - Malignant rectal mass kb Forms: - Medication Reconciliation Form kb - SBAR form kb Signatures: Dispatcher [employer] EDFlakita Vasquez, ZEE-C ZEE-Emile King RN RN bp Blaze Lowry RN RN as6 Julian Martin MD MD rt Corrections: (The following items were deleted from the chart) 13:01 13:01 CBC+H.LAB.BRZ ordered. EDMS EDMS 13:01 13:01 COMPREHENSIVE METABOLIC PANEL+C.LAB.BRZ ordered. EDMS EDMS 13:01 13:01 LIPASE+C.LAB.BRZ ordered. EDMS EDMS 13:01 13:01 Urinalysis+U.LAB.BRZ ordered. EDMS EDMS 13:08 13:01 Abdomen Pelvis Wo Con+CT.RAD.BRZ ordered. EDMS EDMS 16:27 13:01 Pt is a 68 year old male who presents for lower abd pain and "pressure" with kb urination that started 2 days ago. States he has chronic diarrhea. Recently had a colonoscopy and was diagnosed with cancer. States he has an appt on Monday for a procedure and to start treatment. Denies fever, vomiting. kb 18:50 16:26 Dr Ariza kb bp
[2023-12-31] MEDS ORDERED: PIPERACIL/TAZO 3.375 GM VIAL IV ONE (16:55)
[2023-12-31] MEDS ORDERED: NA CHLORIDE 0.9% 100 ML ONE (16:55)
[2023-12-31 19:12] VITALS: BP 113/72; TEMP 98; O2SAT 98
== END 2023-12-31 18:50 | disposition short-term general hospital (02) ==
LOC: ER 12:30
DX: N39.0 Urinary tract infection, site not specified (principal); N13.39 Other hydronephrosis; N13.4 Hydroureter; K63.2 Fistula of intestine; C20 Malignant neoplasm of rectum; F17.210 Nicotine dependence, cigarettes, uncomplicated; Z85.038 Personal history of other malignant neoplasm of large intestine
CPT/HCPCS: 96365; 96361; 87040 ×2; 87088; 85025; 87086; 36415; 83605; 87077; 87186; 81003; 83690; 80053; 74176; 99285; J2543; J7030